=== PATIENT | male | born 1945 | race Caucasian/White ===

== ENCOUNTER → 2017-02-17 | Outpatient (REF) | payer OTHER ==
[2017-02-17 12:36] LABS: BASO % 0.8 % (0.0-1.0); EOS # 0.5 K/mm3 (0.0-0.50); EOS % 7.5 % (0.0-3.0); LARGE UNSTAINED CELL # 0.1 K/mm3 (0.0-0.4); LARGE UNSTAINED CELL % 2.2 % (0.0-4.0); LYMPH # 2.3 K/mm3 (1.5-4.5); LYMPH % 34.4 % (24.0-44.0); MEAN CORPUSCULAR HEMOGLOBIN 31.7 pg (27.0-33.0); MEAN CORPUSCULAR HGB CONC 34.7 g/dl (32.0-36.5); MEAN CORPUSCULAR VOLUME 91.4 fl (80.0-96.0); MONO # 0.5 K/mm3 (0.0-0.8); MONO % 7.4 % (0.0-5.0); NEUTROPHILS % 47.8 % (36.0-66.0); PLATELET COUNT, AUTOMATED 185 k/mm3 (150-450); RED CELL DISTRIBUTION WIDTH 13.1 % (11.5-14.5); WHITE BLOOD COUNT 6.2 K/mm3 (4.0-10.0)
[2017-02-17 13:00] LABS: ALBUMIN 3.7 GM/DL (3.2-5.2); ALBUMIN/GLOBULIN RATIO 1.12 (1.00-1.93); ALKALINE PHOSPHATASE 92 U/L (45-117); ALT/SGPT 23 U/L (12-78); ANION GAP 8 MEQ/L (8-16); AST/SGOT 13 U/L (15-37); BILIRUBIN,TOTAL 0.5 MG/DL (0.2-1.0); BLOOD UREA NITROGEN 11 MG/DL (7-18); CALCIUM LEVEL 9.2 MG/DL (8.8-10.2); CARBON DIOXIDE LEVEL 24 MEQ/L (21-32); CHLORIDE LEVEL 104 MEQ/L (98-107); CHOLESTEROL LEVEL 129 MG/DL (<200); CREATININE FOR GFR 1.01 MG/DL (0.70-1.30); GLOMERULAR FILTRATION RATE > 60.0 (>42); GLUCOSE, FASTING 177 MG/DL (83-110); POTASSIUM SERUM 4.2 MEQ/L (3.5-5.1); SODIUM LEVEL 136 MEQ/L (136-145); TRIGLYCERIDES LEVEL 120 MG/DL (<150)
== END ==
LOC: M SFHCADAM 08:02
PROVIDERS: ATTEND Physician Assistant Medical
DX: E11.9 Type 2 diabetes mellitus without complications (principal); E78.2 Mixed hyperlipidemia; E03.9 Hypothyroidism, unspecified; E55.9 Vitamin D deficiency, unspecified

== ENCOUNTER → 2017-08-17 | Outpatient (REF) | payer OTHER ==
[2017-08-17 13:13] LABS: BASO # 0.1 10^3/uL (0.0-0.2); BASO % 0.6 % (0.0-1.0); EOS # 0.3 10^3/uL (0.0-0.50); EOS % 3.3 % (0.0-3.0); IMMATURE GRANULOCYTE % 0.6 % (0-0); LYMPH # 2.1 10^3/uL (1.5-4.5); LYMPH % 25.1 % (24.0-44.0); MEAN CORPUSCULAR HEMOGLOBIN 30.1 pg (27.0-33.0); MEAN CORPUSCULAR VOLUME 88.6 fl (80.0-96.0); MONO # 0.7 10^3/uL (0.0-0.8); MONO % 8.6 % (0.0-5.0); NEUTROPHILS # 5.2 10^3/uL (1.8-7.7); NEUTROPHILS % 61.8 % (36.0-66.0); PLATELET COUNT, AUTOMATED 278 10^3/uL (150-450); RED CELL DISTRIBUTION WIDTH 12.8 % (11.5-14.5); WHITE BLOOD COUNT 8.4 10^3/uL (4.0-10.0)
[2017-08-17 13:37] LABS: ALBUMIN 3.8 GM/DL (3.2-5.2); ALBUMIN/GLOBULIN RATIO 1.03 (1.00-1.93); ALKALINE PHOSPHATASE 84 U/L (45-117); ALT/SGPT 25 U/L (12-78); ANION GAP 10 MEQ/L (8-16); AST/SGOT 16 U/L (7-37); BILIRUBIN,TOTAL 0.7 MG/DL (0.2-1.0); BLOOD UREA NITROGEN 15 MG/DL (7-18); CALCIUM LEVEL 9.2 MG/DL (8.8-10.2); CARBON DIOXIDE LEVEL 25 MEQ/L (21-32); CHLORIDE LEVEL 104 MEQ/L (98-107); CHOLESTEROL LEVEL 107 MG/DL (<200); CREATININE FOR GFR 1.16 MG/DL (0.70-1.30); GLOMERULAR FILTRATION RATE > 60.0 (>42); GLUCOSE, FASTING 164 MG/DL (83-110); POTASSIUM SERUM 4.6 MEQ/L (3.5-5.1); SODIUM LEVEL 139 MEQ/L (136-145); TOTAL PROTEIN 7.5 GM/DL (6.4-8.2); TRIGLYCERIDES LEVEL 161 MG/DL (<150)
== END ==
LOC: M SFHCADAM 08:52
PROVIDERS: ATTEND Physician Assistant Medical
DX: E03.9 Hypothyroidism, unspecified (principal); E11.9 Type 2 diabetes mellitus without complications; E78.2 Mixed hyperlipidemia; E55.9 Vitamin D deficiency, unspecified

== ENCOUNTER → 2018-04-15 | Outpatient (REF) | payer OTHER ==
[2018-04-15 12:25] LABS: BASO # 0.1 10^3/uL (0.0-0.2); BASO % 0.9 % (0.0-1.0); EOS # 0.4 10^3/uL (0.0-0.50); HEMOGLOBIN 16.2 g/dl (13.5-17.5); IMMATURE GRANULOCYTE % 0.4 % (0-3.0); LYMPH # 2.3 10^3/uL (1.5-4.5); LYMPH % 29.6 % (24.0-44.0); MEAN CORPUSCULAR HGB CONC 34.5 g/dl (32.0-36.5); MONO # 0.7 10^3/uL (0.0-0.8); MONO % 9.2 % (0.0-5.0); NEUTROPHILS # 4.3 10^3/uL (1.8-7.7); NEUTROPHILS % 54.9 % (36.0-66.0); PLATELET COUNT, AUTOMATED 190 10^3/uL (150-450); RED BLOOD COUNT 5.22 10^6/uL (4.30-6.10); WHITE BLOOD COUNT 7.8 10^3/uL (4.0-10.0)
[2018-04-15 12:46] LABS: TOTAL 25(OH) VITAMIN D 41.9 NG/ML (30.0-100.0)
[2018-04-15 13:57] LABS: ESTIMATED AVERAGE GLUCOSE 151 MG/DL (60-110); HEMOGLOBIN A1c 6.9 %
[2018-04-15 14:40] LABS: ALBUMIN 3.5 GM/DL (3.2-5.2); ALKALINE PHOSPHATASE 69 U/L (45-117); ALT/SGPT 31 U/L (12-78); ANION GAP 10 MEQ/L (8-16); AST/SGOT 17 U/L (7-37); BILIRUBIN,TOTAL 0.5 MG/DL (0.2-1.0); BLOOD UREA NITROGEN 15 MG/DL (7-18); CALCIUM LEVEL 8.8 MG/DL (8.8-10.2); CARBON DIOXIDE LEVEL 22 MEQ/L (21-32); CHLORIDE LEVEL 108 MEQ/L (98-107); CHOLESTEROL LEVEL 107 MG/DL (<200); CHOLESTEROL RISK RATIO 2.431 (<5); CREATININE FOR GFR 1.07 MG/DL (0.70-1.30); GLOMERULAR FILTRATION RATE > 60.0 (>42); GLUCOSE, FASTING 155 MG/DL (70-100); HDL CHOLESTEROL 44 MG/DL (>40); LDL CHOLESTEROL 34.2 MG/DL (<100); NON-HDL-C 63 MG/DL; POTASSIUM SERUM 4.4 MEQ/L (3.5-5.1); SODIUM LEVEL 140 MEQ/L (136-145); TRIGLYCERIDES LEVEL 144 MG/DL (<150)
== END ==
LOC: M SFHCADAM 07:50
DX: E11.9 Type 2 diabetes mellitus without complications (principal)
CPT/HCPCS: 84443

== ENCOUNTER 2018-07-16 16:13 | Emergency (ER) | payer OTHER ==
[2018-07-16 18:10] LABS: ALBUMIN 3.6 GM/DL (3.2-5.2); ALKALINE PHOSPHATASE 80 U/L (45-117); ALT/SGPT 33 U/L (12-78); ANION GAP 9 MEQ/L (8-16); AST/SGOT 22 U/L (7-37); BILIRUBIN,TOTAL 0.6 MG/DL (0.2-1.0); BLOOD UREA NITROGEN 13 MG/DL (7-18); CALCIUM LEVEL 9.1 MG/DL (8.8-10.2); CARBON DIOXIDE LEVEL 25 MEQ/L (21-32); CHLORIDE LEVEL 105 MEQ/L (98-107); CPK CREATINE PHOSPHOKINASE 103 U/L (39-308); CREATININE FOR GFR 1.33 MG/DL (0.70-1.30); GLOMERULAR FILTRATION RATE 56.3 (>42); GLUCOSE, FASTING 210 MG/DL (70-100); MAGNESIUM LEVEL 1.9 MG/DL (1.8-2.4); POTASSIUM SERUM 4.1 MEQ/L (3.5-5.1); SODIUM LEVEL 139 MEQ/L (136-145); TOTAL PROTEIN 7.2 GM/DL (6.4-8.2)
== END 2018-07-16 19:51 | disposition home or self-care (01) ==
LOC: M ED 16:13
DX: R25.2 Cramp and spasm (principal); Z86.718 Personal history of other venous thrombosis and embolism; E11.9 Type 2 diabetes mellitus without complications; E78.5 Hyperlipidemia, unspecified; E03.9 Hypothyroidism, unspecified; Z88.0 Allergy status to penicillin; Z79.899 Other long term (current) drug therapy; Z79.84 Long term (current) use of oral hypoglycemic drugs
CPT/HCPCS: 93971

== ENCOUNTER → 2018-10-05 | Outpatient (REF) | payer OTHER, MEDICARE ==
[~2018-10-05] MED LIST: GLYB25TA; JANU100T; LEVO50TA5; METF10004; SIMV20TA2
[2018-10-05 13:19] LABS: ALBUMIN 3.8 GM/DL (3.2-5.2); ALT/SGPT 36 U/L (12-78); BILIRUBIN,TOTAL 0.6 MG/DL (0.2-1.0); BLOOD UREA NITROGEN 12 MG/DL (7-18); CALCIUM LEVEL 8.9 MG/DL (8.8-10.2); CARBON DIOXIDE LEVEL 23 MEQ/L (21-32); CHLORIDE LEVEL 107 MEQ/L (98-107); CHOLESTEROL LEVEL 126 MG/DL (<200); CHOLESTEROL RISK RATIO 2.571 (<5); CREATININE FOR GFR 1.16 MG/DL (0.70-1.30); GLOMERULAR FILTRATION RATE > 60.0 (>42); GLUCOSE, FASTING 154 MG/DL (70-100); HDL CHOLESTEROL 49 MG/DL (>40); LDL CHOLESTEROL 42 MG/DL (<100); NON-HDL-C 77 MG/DL; POTASSIUM SERUM 4.8 MEQ/L (3.5-5.1); SODIUM LEVEL 139 MEQ/L (136-145); TOTAL 25(OH) VITAMIN D 45.5 NG/ML (30.0-100.0); TOTAL PROTEIN 7.4 GM/DL (6.4-8.2); TRIGLYCERIDES LEVEL 175 MG/DL (<150)
[2018-10-05 13:30] LABS: HEMOGLOBIN A1c 8.2 %
== END ==
LOC: M SFHCADAM 08:34
PROVIDERS: ATTEND Physician Assistant Medical
DX: E11.9 Type 2 diabetes mellitus without complications (principal); E55.9 Vitamin D deficiency, unspecified; E03.9 Hypothyroidism, unspecified; E78.2 Mixed hyperlipidemia

== ENCOUNTER → 2019-02-01 | Outpatient (REF) | payer OTHER, MEDICARE ==
[2019-02-01 13:11] LABS: ALBUMIN 3.6 GM/DL (3.2-5.2); ALT/SGPT 35 U/L (12-78); BILIRUBIN,TOTAL 0.6 MG/DL (0.2-1.0); BLOOD UREA NITROGEN 14 MG/DL (7-18); CALCIUM LEVEL 8.7 MG/DL (8.8-10.2); CARBON DIOXIDE LEVEL 24 MEQ/L (21-32); CHLORIDE LEVEL 106 MEQ/L (98-107); CREATININE FOR GFR 1.18 MG/DL (0.70-1.30); GLOMERULAR FILTRATION RATE > 60.0 (>42); GLUCOSE, FASTING 160 MG/DL (70-100); POTASSIUM SERUM 4.6 MEQ/L (3.5-5.1); SODIUM LEVEL 140 MEQ/L (136-145); TOTAL PROTEIN 7.2 GM/DL (6.4-8.2)
[2019-02-01 14:06] LABS: HEMOGLOBIN A1c 7.8 %
== END ==
LOC: M SFHCADAM 08:09
PROVIDERS: ATTEND Physician Assistant Medical
DX: E11.9 Type 2 diabetes mellitus without complications (principal); E03.9 Hypothyroidism, unspecified

== ENCOUNTER 2019-04-04 09:02 | Inpatient (IN) | payer MEDICARE ==
[~2019-04-04] VITALS: Ht 177.8 cm; Wt 90.2 kg
[~2019-04-04 09:02] MED LIST changes: -JANU100T; +JANU100T PO; -LEVO50TA5; +LEVO50TA5 PO; -METF10004; +METF10004 PO; -SIMV20TA2; +SIMV20TA22 PO
[2019-04-04] MEDS ORDERED: LISI10TA4 PO (09:14)
[2019-04-04] MEDS ORDERED: GLYB5TA PO (09:14)
[2019-04-04] MEDS ORDERED: ASPI81TA33 PO (09:14)
[2019-04-04] MEDS ORDERED: FISH1000 PO (09:14)
[2019-04-04 10:15] LABS: BASO # 0.1 10^3/uL (0.0-0.2); BASO % 0.4 % (0.0-1.0); EOS # 0.1 10^3/uL (0.0-0.50); EOS % 0.9 % (0.0-3.0); HEMATOCRIT 48.6 % (42.0-52.0); HEMOGLOBIN 16.7 g/dl (13.5-17.5); LYMPH # 1.3 10^3/uL (1.5-4.5); MEAN CORPUSCULAR HEMOGLOBIN 31.2 pg (27.0-33.0); MEAN CORPUSCULAR HGB CONC 34.4 g/dl (32.0-36.5); MEAN CORPUSCULAR VOLUME 90.8 fl (80.0-96.0); MONO # 1.3 10^3/uL (0.0-0.8); MONO % 9.1 % (0.0-5.0); NEUTROPHILS # 11.4 10^3/uL (1.8-7.7); NEUTROPHILS % 79.6 % (36.0-66.0); PLATELET COUNT, AUTOMATED 205 10^3/uL (150-450); RED BLOOD COUNT 5.35 10^6/uL (4.30-6.10); WHITE BLOOD COUNT 14.4 10^3/uL (4.0-10.0)
--- NOTE | 2019-04-04 10:35 | REP ---
Clinical: Cough and dyspnea. Technique: PA and lateral. Comparison: None. Findings: Ill-defined bibasilar atelectasis/infiltrate (left greater than right). No obvious effusion. No pneumothorax. Mediastinum and cardiac silhouette grossly unremarkable. Skeletal structures intact. Impression: Ill-defined bibasilar atelectasis/infiltrate (left greater than right). Follow-up to resolution recommended. Electronically Signed by Sebastian Tolliver MD 04/04/2019 10:27 A
[2019-04-04 10:43] LABS: BLOOD UREA NITROGEN 15 MG/DL (7-18); CALCIUM LEVEL 9.4 MG/DL (8.8-10.2); CARBON DIOXIDE LEVEL 22 MEQ/L (21-32); CHLORIDE LEVEL 100 MEQ/L (98-107); CK-MB VALUE MASS < 1.0 NG/ML (<3.6); CPK CREATINE PHOSPHOKINASE 59 U/L (39-308); CREATININE FOR GFR 1.37 MG/DL (0.70-1.30); GLOMERULAR FILTRATION RATE 54.2 (>42); GLUCOSE, FASTING 219 MG/DL (70-100); MB/CK RELATIVE INDEX 1.69 (< OR =4); POTASSIUM SERUM 4.7 MEQ/L (3.5-5.1); SODIUM LEVEL 131 MEQ/L (136-145); TROPONIN I < 0.02 NG/ML (< 0.10)
[2019-04-04] MEDS ORDERED: ISOVUE-370 76% 100ML VIAL (Q9967) As Ordered ONE (10:54)
[2019-04-04 11:07] LABS: NT-PRO BNP 95 PG/ML (<125)
[2019-04-04] MEDS ORDERED: NS 1,000 ML IV ONE (11:45)
--- NOTE | 2019-04-04 11:59 | REP ---
Clinical: Pleuritic chest pain. Technique: Axial contrast enhanced images from the thoracic inlet to the upper abdomen using pulmonary embolus technique including multiplanar and MIP re-formations. 100 ml Isovue 370 intravenous contrast material administered without complication. Findings: Significant pulmonary emboli are identified within the first and second order pulmonary arteries involving the lingula, left lower lobe, right lower lobe, and right middle lobe. Small ill-defined areas of consolidation involving the lingula and left lower lobe are identified along with mild bibasilar atelectasis and dependent changes. No effusion. No pneumothorax. Underlying chronic age-related interstitial changes noted. Thoracic aorta and heart/pericardium are relatively normal. No cardiomegaly or pericardial effusion. No aortic aneurysm or dissection. Osseous structures demonstrate age-related degenerative changes. Impression: Significant bilateral pulmonary emboli extending into the first and second order lingular, left lower lobe, right middle lobe and right lower lobe pulmonary arteries with mild lingular and left lower lobe consolidations as well as minimal dependent changes and atelectasis. Electronically Signed by Sebastian Tolliver MD 04/04/2019 11:50 A
[2019-04-04] MEDS ORDERED: ENOXAPARIN 100MG/1ML SYRINGE (J1650) SC ONE (12:30)
[2019-04-04] MEDS ORDERED: D32000CA PO (12:45)
[2019-04-04 13:02] LABS: INR 1.11
[2019-04-04 13:03] LABS: PARTIAL THROMBOPLASTIN TIME 33.2 SECONDS (25.0-38.4)
--- NOTE | 2019-04-04 13:58 | REP ---
Bilateral lower extremity deep vein duplex ultrasound: Comparison is the left lower extremity deep vein duplex ultrasound dated 07/16/2018. Right lower extremity: The right popliteal vein is incompletely compressible and no echogenic thrombus can be identified in the right popliteal vein lumen. There is no thrombus throughout the remainder of the right lower extremity. Impression: Focal nonocclusive thrombus in the right popliteal vein. Left lower extremity: There is occlusive thrombus extending from the posterior tibial trunk into the popliteal vein and femoral vein, all the way to the common femoral vein. Impression: Extensive occlusive thrombus from the posterior tibial vein to the common femoral vein. Electronically Signed by Bradley Jones MD 04/04/2019 01:49 P
[2019-04-04 14:12] LABS: ERYTHROCYTE SEDIMENTATION RATE 17 mm/hr (0-20)
[2019-04-04] MEDS ORDERED: GLUCAGON FOR INJ 1 MG VIAL (J1610) SC PRN (14:45)
[2019-04-04] MEDS ORDERED: GLUCOSE 4 GM CHEW TABLET PO PRN (14:45)
[2019-04-04] MEDS ORDERED: DEXTROSE 50% 50 ML SYRINGE IV PRN (14:45)
--- NOTE | 2019-04-04 15:21 | CR.PDOC ---
General Date of Consultation: Apr 04, [address] Marte HPI: 73 year old M with a past medical history significant for history of right lower extremity DVT postoperative 2001 at time of colovesicular repair. 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 The patient states that on Thursday he was walking to his car when he suddenly felt short of breath. He also felt fatigued. He noted radiating pain through to his back which was worse with a deep breath. Over the weekend he felt worse and felt more fatigued with decreased oral intake. States he was in bed for most of the weekend. The patient denies chest pain, lower extremity pain or lower extremity swelling. Denies any fevers, chills, Headache, palpitations, abdominal pain, N/V/D or changes in bowel or bladder habits. The patient denies any prior history of bleeding, epistaxis, hematuria, GI bleeding, hemorrhagic stroke. Denies history of surgery or trauma. Vascular surgery is consulted for consideration of left lower extremity thrombectomy. 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 ROS: As noted in HPI, otherwise 11pt ROS of systems reviewed and unremarkable. PE: GEN: 73 yo M, appears stated age. Alert and oriented x 3. Currently appears comfortable resting in the stretcher. HEENT: Normocephalic, atraumatic.Sclera are nonicteric. Conjunctiva without injection. No facial asymmetry. Moist mucous membranes. CHEST: Regular rate and rhythm, +S1, +S2 LUNGS: Clear to auscultation bilaterally. No wheezes, rales, or rhonchi. Breathing appears symmetric and easy. ABD: Round, soft, non-tender, non-distended. +Bowel sounds throughout. No rebound or guarding. No costovertebral angle tenderness. EXT: Pulses palpable DP/PT bilaterally. No lower extremity edema appreciated. No erythema or calf tenderness noted. SKIN: [place], dry, warm. Capillary refill <2sec. No rashes. NEURO: Alert and oriented x 3. Cranial nerves III-XII are intact. No focal deficits appreciated. CTA chest Significant bilateral pulmonary emboli extending into the first and second order lingular, left lower lobe, right middle lobe and right lower lobe pulmonary arteries with mild lingular and left lower lobe consolidations as well as minimal dependent changes and atelectasis. Electronically Signed by Sebastian Tolliver MD 04/04/2019 11:50 A Lower extremity ultrasound Focal nonocclusive thrombus in the right popliteal vein. Left lower extremity: There is occlusive thrombus extending from the posterior tibial trunk into the popliteal vein and femoral vein, all the way to the common femoral vein. Impression: Extensive occlusive thrombus from the posterior tibial vein to the common femoral vein. Electronically Signed by Bradley Jones MD 04/04/2019 01:49 P A&P: 1. Bilateral DVT/PE. 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 Vital signs noted currently heart rate 112, blood pressure 153/72, respiratory rate 16, oxygen saturation 96% 2 L nasal cannula. Serum creatinine noted to be 1.37. Fibrinogen 681 Echocardiogram pending at this time. Hypercoagulable workup pending The patient is reviewed with Dr. Marte. Await echocardiogram results. Dr. Marte will discuss with patient regarding risks/benefits of thrombolysis. The patient denies any prior history of bleeding, epistaxis, hematuria, GI bleeding, hemorrhagic stroke. Denies history of surgery or trauma. Currently Lovenox 90 mg subcutaneous every 12 hours. Vital Signs/I&O Vital Signs Date Time Temp Pulse Resp B/P (MAP) Pulse Ox O2 Delivery O2 Flow Rate FiO2 04/04/19 13:47 112 16 96 Nasal Cannula 2.0 04/04/19 13:37 153/72 (99) 04/04/19 09:03 99.6 Laboratory Data Labs 24H Laboratory Tests 2 04/04/19 10:03: Immature Granulocyte % (Auto) 1.0, White Blood Count 14.4H, Red Blood Count 5.35, Hemoglobin 16.7, Hematocrit 48.6, Mean Corpuscular Volume 90.8, Mean Corpuscular Hemoglobin 31.2, Mean Corpuscular Hemoglobin Concent 34.4, Red Cell Distribution Width 12.9, Platelet Count 205, Neutrophils (%) (Auto) 79.6H, Lymphocytes (%) (Auto) 9.0L, Monocytes (%) (Auto) 9.1H, Eosinophils (%) (Auto) 0.9, Basophils (%) (Auto) 0.4, Neutrophils # (Auto) 11.4H, Lymphocytes # (Auto) 1.3L, Monocytes # (Auto) 1.3H, Eosinophils # (Auto) 0.1, Basophils # (Auto) 0.1, Nucleated Red Blood Cells % (auto) 0.0, Erythrocyte Sedimentation Rate 17, Anion Gap 9, Glomerular Filtration Rate 54.2, Blood Urea Nitrogen 15, Creatinine 1.37H, Sodium Level 131L, Potassium Level 4.7, Chloride Level 100, Carbon Dioxide Level 22, Calcium Level 9.4, Total Creatine Kinase 59, Creatine Kinase MB < 1.0, Creatine Kinase MB Relative Index 1.69, Troponin I < 0.02, C-Reactive Protein, Quantitative 11.00H, ZL-Eph-F-Type Natriuretic Peptide 95 04/04/19 11:52: Lactic Acid Level 2.4*H 04/04/19 12:27: Prothrombin Time 14.0, Prothromb Time International Ratio 1.11, Activated P artial Thromboplast Time 33.2 04/04/19 12:42: Fibrinogen 681H CBC/BMP Laboratory Tests 04/04/19 10:03 Red Blood Count 5.35, Mean Corpuscular Volume 90.8, Mean Corpuscular Hemoglobin 31.2, Mean Corpuscular Hemoglobin Concent 34.4, Red Cell Distribution Width 12.9, Neutrophils (%) (Auto) 79.6 H, Lymphocytes (%) (Auto) 9.0 L, Monocytes (%) (Auto) 9.1 H, Eosinophils (%) (Auto) 0.9, Basophils (%) (Auto) 0.4, Neutrophils # (Auto) 11.4 H, Lymphocytes # (Auto) 1.3 L, Monocytes # (Auto) 1.3 H, Eosinophils # (Auto) 0.1, Basophils # (Auto) 0.1, Calcium Level 9.4, Total Creatine Kinase 59 Microbiology Microbiology 04/04/19 Blood Culture, Received Pending 04/04/19 Blood Culture, Received Pending 04/04/19 Respiratory Virus Panel (PCR) (CARRILLO), Received Pending Allergies Coded Allergies: Penicillins (Verified Allergy, Intermediate, rash, SOB, 7/29/19) Home Medications Scheduled Aspirin (Aspirin EC) 81 Mg Tablet.dr, 81 MG PO Q2D, (Reported) Cholecalciferol (Vitamin D3) (Vitamin D3) 2,000 Unit Capsule, 2,000 UNIT PO DAILY, (Reported) Glyburide (Glyburide) 5 Mg Tablet, 5 MG PO DAILY, (Reported) Levothyroxine Sodium (Levothyroxine Sodium) 50 Mcg Tab, 50 MCG PO DAILY, (Reported) Lisinopril (Lisinopril) 10 Mg Tablet, 10 MG PO QPM, (Reported) Metformin HCl (Metformin HCl) 1,000 Mg Tab, 1,000 MG PO BID, (Reported) [place]-3 Fatty Acids/Fish Oil (Fish Oil 1,000 mg Capsule) 1 Each Capsule, 360 MG PO BID, (Reported) Simvastatin (Simvastatin) 20 Mg Tab, 20 MG PO QPM, (Reported) Sitagliptin Phosphate (Januvia) 100 Mg Tab, 100 MG PO QPM, (Reported) Viola Bernabe Apr 04, 2019 15:21
[2019-04-04 16:28] LABS: CK-MB VALUE MASS < 1.0 NG/ML (<3.6); CPK CREATINE PHOSPHOKINASE 48 U/L (39-308); MB/CK RELATIVE INDEX 2.08 (< OR =4); TROPONIN I < 0.02 NG/ML (< 0.10)
[2019-04-04 16:52] VITALS: BP 150/60
[2019-04-04] MEDS: HumaLOG INSULIN (NovoLOG) PER UNIT SC SCH ×2 (17:30→20:48)
[2019-04-04 19:00] VITALS: BP 157/79
--- NOTE | 2019-04-04 20:15 | ECGEPIP ---
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
--- NOTE | 2019-04-04 20:39 | ECHO ---
DATE OF PROCEDURE: 04/04/2019 DATE OF : 1945 AGE: 73 GENDER: Male HEIGHT: 70 inches WEIGHT: 196 pounds BODY SURFACE AREA: 2.07 meters squared INPATIENT: Currently in the emergency room. REFERRING PHYSICIAN: Dr. Daphnie Gonzalez INDICATION: Dyspnea. Pulmonary emboli. MEASUREMENTS: 2D Measurements: RV: 3.4 cm LV: 4.0 cm Septum: 1.1 cm Posterior wall: 1.1 cm Aortic root: 3.6 cm LA: 3.4 cm LVEF: 80% DOPPLER MEASUREMENTS: AV: 1.2 meters per second LVOT: 1.1 meters per second LVOT: 2.2 cm MV-E: 72, A: 120, EA ratio: 0.6 Early mitral deceleration time: 229 milliseconds E prime: 5.9, A prime: 10, E/E prime ratio: 12.3 Pulmonary capillary wedge pressure: 14.7 mmHg PV: 0.75 meters per second Pulmonary artery acceleration time: 81 milliseconds RVSP: 46-51 mmHg IVC: 2.0 cm COMMENTS: Sinus tachycardia without intraventricular conduction disturbance. M-mode and two-dimensional echocardiography was performed with pulsed, continuous wave, color flow and tissue Doppler studies. Normal left ventricular size and wall thickness with hyperkinetic wall motion. Normal left atrial size but Doppler assessment of left ventricular (LV) diastolic function was abnormal with at least borderline increased estimated mean left atrial pressure. Normal right heart chamber sizes and motion with Doppler evidence of at least moderate pulmonary hypertension. Inferior vena cava (IVC) size upper limits of normal with reduced respiratory collapse in keeping with elevated central venous pressure. Normal appearing and functioning valvular structures. Normal aortic root size. No apparent intracardiac mass or pericardial effusion.
[2019-04-04 20:45] VITALS: BP 118/76
[2019-04-04] MEDS: SIMVASTATIN 20 MG TAB PO SCH (20:56)
[2019-04-04] MEDS ORDERED: lisinopriL 10 MG TAB PO SCH (21:00)
[2019-04-04] MEDS ORDERED: SITagliptin 50 MG TAB (JANUVIA) PO SCH (21:00)
[2019-04-05] VITALS (12 sets, daily range): BP systolic 104–190; BP diastolic 56–111
[2019-04-05] MEDS ORDERED: ENOXAPARIN 100MG/1ML SYRINGE (J1650) SC ONE
[2019-04-05 03:15] LABS: CK-MB VALUE MASS < 1.0 NG/ML (<3.6); CPK CREATINE PHOSPHOKINASE 66 U/L (39-308); MB/CK RELATIVE INDEX 1.52 (< OR =4); TROPONIN I < 0.02 NG/ML (< 0.10)
[2019-04-05] MEDS: LEVOTHYROXINE 50MCG TABLET (0.05MG) PO SCH (05:59)
[2019-04-05] MEDS: HumaLOG INSULIN (NovoLOG) PER UNIT SC SCH ×4 (07:54→21:00)
[2019-04-05] MEDS: VITAMIN D 1,000 INTERNATIONAL UNITS TABLET PO SCH (07:55)
--- NOTE | 2019-04-05 08:03 | HPE ---
DATE OF ADMISSION: 04/04/2019 PRIMARY CARE PHYSICIAN: Yuli Mccann PA-C. CHIEF COMPLAINT: Chest pain, shortness of breath, weakness. HISTORY OF PRESENT ILLNESS: A 73-year-old male with a past medical history significant for postoperative deep venous thrombosis (DVT) in 2001 after colovesicular fistula repair status post Lovenox at that time, diabetes, hypertension, hypothyroidism, vitamin D deficiency, basal cell cancer (CA) of the right shoulder, left nose, right upper back, and left neck, and dyslipidemia, presents to the emergency room with several day history of increasing pleuritic chest pain. 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 This past week, he has been driving every day for about five days, at least about 50 hours. 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 On Thursday, he drove to [place], then [place] and then [place], and then back to [place]. He usually drives alone long distances, but about 4-5 other personnel comes in order to bring him back home. On Thursday evening, patient noted left-sided flank pain, worsened when he takes a deep breath and complained of pleuritic chest pain and a nonproductive cough. He otherwise denies any fever or chills. He has had increasing fatigue and weakness, prompting him to sleep all day on a chair for the past three days and in bed. According to the , he has not really eaten very much since Thursday evening and throughout the weekend. He has only had a homemade chicken soup on Thursday and a can of ninoska darrel. Despite this, patient kept on taking his medications, including lisinopril 10 mg daily. He has complained of decreased urination and some constipation. He has tried to keep cool in this 90 degree weather by keeping the fan on inside the home. He has not had any fevers or chills and has been around 99 degrees on the thermometer. In the emergency room (ER), he was found to be tachycardic. Chest x-ray showed bilateral infiltrates. White count was 14,000. Due to recent history of long distance driving, patient was sent for CT of the chest, which showed extensive bilateral pulmonary embolism. Venous Dopplers of the lower extremities shows an occlusive thrombus extending from the posterior tibial trunk into the popliteal vein and femoral vein, all the way to the common femoral. Hospitalist was called to admit. PAST MEDICAL HISTORY: 1. Hypertension. 2. Dyslipidemia. 3. Diabetes. 4. Hypothyroidism. 5. Vitamin D deficiency. 6. Postoperative deep venous thrombosis (DVT) in 2001. 7. Basal cell cancer (CA) upper back and neck. ALLERGIES: PENICILLIN, causing a rash. PAST SURGICAL HISTORY: 1. Colovesicular surgical repair by Dr. Farias in 2002. 2. Release of tendon on the ring finger of the left hand 2010. HOME MEDICATIONS: Please see below. 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 He is a former smoker, quit over 10 years ago. Lives with his at home. Recreational alcohol use. FAMILY HISTORY: Father , 80s, diabetes and smoker. Mother , 89, diabetes, diverticulosis. Three brothers, two sisters, all with type 2 diabetes. Son is alive, age 55, with obesity. Daughter alive, age 35, with obesity. REVIEW OF SYSTEMS: A 12-point system negative aside from positive findings in history of present illness (HPI). PHYSICAL EXAMINATION: Temperature 99.6, pulse 133, respiratory rate 19, blood pressure 139/64, 94% on room air. GENERAL: Patient is awake, alert, oriented times three, answering questions appropriately. Face is symmetric. Tongue is midline. No use of respiratory accessory muscles. No conversational dyspnea. Extraocular muscles are intact. Neck is supple, full range of motion. No cervical lymphadenopathy, thyromegaly or jugular venous distention. There are no carotid bruits noted. Lungs are diminished, but clear to auscultation. HEART: S1, S2. Sinus tachycardia. No murmurs, rubs or gallops. ABDOMEN: Obese, soft, nontender, nondistended. Positive bowel sounds. EXTREMITIES: No cyanosis, clubbing. There is trace pitting edema bilateral lower extremities. No calf tenderness or swelling. LABORATORY DATA: White count 14.4, hemoglobin 16, hematocrit 48, platelet count 205; 79% neutrophils, 9% lymphocytes. Sodium 131, potassium 4.7, chloride 100, bicarbonate 22, BUN 15, creatinine 1.37, glucose 219, lactic acid 2.4, calcium 9.4. Total CK 59, MB fraction less than 1. Troponin less than 0.02. CRP of 11. BNP of 95. Two sets of blood cultures are negative. Urinalysis pending. Antinuclear antibody (JOSEFA) screen, anticardiolipin, Factor II mutation, Factor V Leiden mutation all pending. IMAGING STUDIES: 04/04/2019: Chest x-ray: Ill-defined bibasilar atelectasis/infiltrate, left greater than the right. Followup to resolution is recommended. CT chest shows significant bilateral pulmonary emboli extending into the first and second order of lingula, left lower lobe, right middle lobe, right lower lobe pulmonary arteries, with mild lingular and left lower lobe consolidation as well as minimal dependent changes and atelectasis. Venous Doppler bilateral lower extremities shows a focal nonocclusive thrombus in the right popliteal vein. Left lower extremity has occlusive thrombus extending to the posterior tibial trunk into the popliteal and femoral vein all the way to the common femoral vein, extensive occlusive thrombus from the posterior tibial vein to the common femoral vein ASSESSMENT AND PLAN: This is a 73-year-old male who presented with pleuritic chest pain, shortness of breath, found to have extensive bilateral pulmonary embolism and extensive left lower extremity deep venous thrombosis (DVT) extending from the posterior tibial trunk to the popliteal and femoral veins to the common femoral vein. IMPRESSION: 1. Pulmonary embolism (PE)/deep venous thrombosis (DVT) secondary to recent long distance driving and immobility. He is currently on Lovenox subcutaneously every 12 hours with weight of 89.9 kilos, adjusted to 90 mg subcutaneously every 12 hours. Factor V Leiden mutation, Factor II mutation, JOSEFA, anticardiolipin antibodies have been sent. Protein C and S has been deferred as this may be depleted during the acute clot formation. Echocardiogram has been ordered to determine patient's pulmonary arterial pressures. Will consult vascular surgery regarding extensive left lower extremity DVT, if thrombectomy is indicated. 2. Acute kidney injury secondary to decreased oral intake and continued use of lisinopril. Patient will be monitored with a repeat metabolic panel, encouraged to continue with oral intake and IV fluids have been given. Monitor respiratory status in light of bilateral PE. Avoid nephrotoxins. Renal dose all medications. Keep strict intake and output (I and O). 3. Hypothyroidism. May continue on home dose of levothyroxine 50 mcg daily and check a TSH level. 4. Type 2 diabetes. Continue on consistent carbohydrate diet. Insulin sliding scale. Will hold off on patient's metformin at this time in light of recent contrast use for CT angiogram of the chest. 5. Dyslipidemia. Continue on omega3 fish oil and simvastatin. Check lipid panel in the morning. 6. Vitamin D deficiency. Continue on vitamin D supplements. 7. CODE STATUS: FULL CODE. Patient will be signed out to Dr. Ko Garner.
[2019-04-05 08:44] LABS: HEMATOCRIT 43.2 % (42.0-52.0); HEMOGLOBIN 15.1 g/dl (13.5-17.5); MEAN CORPUSCULAR VOLUME 88.7 fl (80.0-96.0); PLATELET COUNT, AUTOMATED 228 10^3/uL (150-450); RED BLOOD COUNT 4.87 10^6/uL (4.30-6.10); WHITE BLOOD COUNT 11.1 10^3/uL (4.0-10.0)
--- NOTE | 2019-04-05 09:10 | IPNPDOC ---
Date Seen The patient was seen on 04/05/19. Progress Note Vascular surgery. Dr. Marte HPI: 73 year old M with a past medical history significant for history of right lower extremity DVT postoperative 2001 at time of colovesicular repair. 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 The patient states that on Thursday he was walking to his car when he suddenly felt short of breath. He also felt fatigued. He noted radiating pain through to his back which was worse with a deep breath. Over the weekend he felt worse and felt more fatigued with decreased oral intake. States he was in bed for most of the weekend. This AM the pt states breathing is comfortable. Eating and drinking. The patient denies chest pain, lower extremity pain or lower extremity swelling. Denies any fevers, chills, Headache, palpitations, abdominal pain, N/V/D or changes in bowel or bladder habits. The patient denies any prior history of bleeding, epistaxis, hematuria, GI bleeding, hemorrhagic stroke. Denies history of surgery or trauma. Vascular surgery is consulted for consideration of left lower extremity thrombectomy. PMHx: Hypertension Hypothyroidism Dyslipidemia History of post operative DVT right lower extremity 2001 Vitamin D deficiency PSHX: Removal of squamous cell carcinoma Colovesicular repair Dupuytren's contracture left hand PE: GEN: 73 yo M, appears stated age. Alert and oriented x 3. Currently appears comfortable. HEENT: Normocephalic, atraumatic. Moist mucous membranes. CHEST: Regular rate and rhythm, +S1, +S2 LUNGS: Clear to auscultation bilaterally. No wheezes, rales, or rhonchi. Breathing appears symmetric and easy. ABD: Round, soft, non-tender, non-distended. +Bowel sounds throughout. No rebound or guarding. EXT: Pulses palpable DP/PT bilaterally. No lower extremity edema appreciated. No erythema or calf tenderness noted. SKIN: Sells, dry, warm. Capillary refill <2sec. No rashes. NEURO: Alert and oriented x 3. Cranial nerves III-XII are intact. No focal deficits appreciated. CTA chest Significant bilateral pulmonary emboli extending into the first and second order lingular, left lower lobe, right middle lobe and right lower lobe pulmonary arteries with mild lingular and left lower lobe consolidations as well as minimal dependent changes and atelectasis. Electronically Signed by Sebastian Tolliver MD 04/04/2019 11:50 A Lower extremity ultrasound Focal nonocclusive thrombus in the right popliteal vein. Left lower extremity: There is occlusive thrombus extending from the posterior tibial trunk into the popliteal vein and femoral vein, all the way to the common femoral vein. Impression: Extensive occlusive thrombus from the posterior tibial vein to the common femoral vein. Electronically Signed by Bradley Jones MD 04/04/2019 01:49 P TTE COMMENTS: Sinus tachycardia without intraventricular conduction disturbance. M-mode and two-dimensional echocardiography was performed with pulsed, continuous wave, color flow and tissue Doppler studies. Normal left ventricular size and wall thickness with hyperkinetic wall motion. Normal left atrial size but Doppler assessment of left ventricular (LV) diastolic function was abnormal with at least borderline increased estimated mean left atrial pressure. Normal right heart chamber sizes and motion with Doppler evidence of at least moderate pulmonary hypertension. Inferior vena cava (IVC) size upper limits of normal with reduced respiratory collapse in keeping with elevated central venous pressure. Normal appearing and functioning valvular structures. Normal aortic root size. No apparent intracardiac mass or pericardial effusion. DD: Ke Ferraro MD, [facility] 04/04/191938 A&P: 1. Bilateral DVT/PE. 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 Vital signs noted currently heart rate 92-107, SBP 125, respiratory rate 16, oxygen saturation 94% RA. Serum creatinine this AM pending. Fibrinogen 681 on admission. Echocardiogram as above. Hypercoagulable workup pending The patient is reviewed with Dr. Marte. Dr. Marte to further review TTE and plans to discuss recommendations with patient. The patient denies any prior history of bleeding, epistaxis, hematuria, GI bleeding, hemorrhagic stroke. Denies history of surgery or trauma. Currently Lovenox 90 mg subcutaneous every 12 hours. VS, I&O, 24H, Fishbone Vital Signs/I&O Vital Signs Date Time Temp Pulse Resp B/P (MAP) Pulse Ox O2 Delivery O2 Flow Rate FiO2 04/05/19 08:00 97.4 107 18 122/75 (91) 94 04/05/19 00:26 2.0 04/04/19 16:31 Room Air I&O- Last 24 Hours up to 6 AM 04/05/19 06:00 Intake Total 1300 ml Output Total 300 ml Balance 1000 ml Laboratory Data 24H LABS Laboratory Tests 2 04/04/19 10:03: Immature Granulocyte % (Auto) 1.0, White Blood Count 14.4H, Red Blood Count 5.35, Hemoglobin 16.7, Hematocrit 48.6, Mean Corpuscular Volume 90.8, Mean Giselle uscular Hemoglobin 31.2, Mean Corpuscular Hemoglobin Concent 34.4, Red Cell Distribution Width 12.9, Platelet Count 205, Neutrophils (%) (Auto) 79.6H, Lymphocytes (%) (Auto) 9.0L, Monocytes (%) (Auto) 9.1H, Eosinophils (%) (Auto) 0.9, Basophils (%) (Auto) 0.4, Neutrophils # (Auto) 11.4H, Lymphocytes # (Auto) 1.3L, Monocytes # (Auto) 1.3H, Eosinophils # (Auto) 0.1, Basophils # (Auto) 0.1, Nucleated Red Blood Cells % (auto) 0.0, Erythrocyte Sedimentation Rate 17, Anion Gap 9, Glomerular Filtration Rate 54.2, Blood Urea Nitrogen 15, Creatinine 1.37H, Sodium Level 131L, Potassium Level 4.7, Chloride Level 100, Carbon Dioxide Level 22, Calcium Level 9.4, Total Creatine Kinase 59, Creatine Kinase MB < 1.0, Creatine Kinase MB Relative Index 1.69, Troponin I < 0.02, C-Reactive Protein, Quantitative 11.00H, RU-Nev-[id number]-Type Natriuretic Peptide 95 04/04/19 11:52: Lactic Acid Level 2.4*H 04/04/19 12:27: Prothrombin Time 14.0, Prothromb Time International Ratio 1.11, Activated Partial Thromboplast Time 33.2 04/04/19 12:42: Fibrinogen 681H 04/04/19 15:24: Lactic Acid Level 1.5, Total Creatine Kinase 48, Creatine Kinase MB < 1.0, Creatine Kinase MB Relative Index 2.08, Troponin I < 0.02 04/04/19 16:20: Lactic Acid Followup at 4 Hours 2.6*H 04/04/19 17:18: Bedside Glucose (Misc Panel) 134H 04/04/19 20:00: Bedside Glucose (Misc Panel) 123H 04/05/19 02:29: Total Creatine Kinase 66, Creatine Kinase MB < 1.0, Creatine Kinase MB Relative Index 1.52, Troponin I < 0.02 04/05/19 04:18: Urine Color YELLOW, Urine Appearance CLEAR, Urine pH 5.0, Urine Specific [place] 1.014, Urine Protein NEGATIVE, Urine Glucose (UA) NEGATIVE, Urine Ketones TRACEH, Urine Blood NEGATIVE, Urine Nitrite NEGATIVE, Urine Bilirubin NEGATIVE, Urine Urobilinogen 0.2, Urine Leukocyte Esterase NEGATIVE, Urine WBC (Auto) 0, Urine RBC (Auto) 0, Urine Hyaline Casts (Auto) 0, Urine Bacteria (Auto) NEGATIVE, Urine Squamous Epithelial Cells 0, Urine Sperm (Auto) 04/05/19 06:37: Bedside Glucose (Misc Panel) 118H 04/05/19 08:32: Nucleated Red Blood Cells % (auto) 0.0 CBC/BMP Laboratory Tests 04/04/19 10:03 Red Blood Count 5.35, Mean Corpuscular Volume 90.8, Mean Corpuscular Hemoglobin 31.2, Mean Corpuscular Hemoglobin Concent 34.4, Red Cell Distribution Width 12.9, Neutrophils (%) (Auto) 79.6 H, Lymphocytes (%) (Auto) 9.0 L, Monocytes (%) (Auto) 9.1 H, Eosinophils (%) (Auto) 0.9, Basophils (%) (Auto) 0.4, Neutrophils # (Auto) 11.4 H, Lymphocytes # (Auto) 1.3 L, Monocytes # (Auto) 1.3 H, Eosinophils # (Auto) 0.1, Basophils # (Auto) 0.1, Calcium Level 9.4, Total Creatine Kinase 59 04/05/19 08:32 Red Blood Count 4.87, Mean Corpuscular Volume 88.7, Mean Corpuscular Hemoglobin 31.0, Mean Corpuscular Hemoglobin Concent 35.0, Red Cell Distribution Width 13.0 Microbiology Microbiology 04/04/19 Blood Culture, Received Pending 04/04/19 Blood Culture, Received Pending 04/04/19 Respiratory Virus Panel (PCR) ([facility]) - Final, Complete Viola Bernabe Apr 05, 2019 09:10
[2019-04-05 09:12] LABS: ALT/SGPT 20 U/L (12-78); BLOOD UREA NITROGEN 15 MG/DL (7-18); CARBON DIOXIDE LEVEL 22 MEQ/L (21-32); CHLORIDE LEVEL 102 MEQ/L (98-107); GLOMERULAR FILTRATION RATE > 60.0 (>42); GLUCOSE, FASTING 189 MG/DL (70-100); POTASSIUM SERUM 4.4 MEQ/L (3.5-5.1); SODIUM LEVEL 133 MEQ/L (136-145); TOTAL PROTEIN 7.7 GM/DL (6.4-8.2)
--- NOTE | 2019-04-05 09:47 | IPNPDOC ---
Subjective Date Seen The patient was seen on 04/05/19. Subjective Chief Complaint/HPI Patient sitting on edge of bed as I entered the room. Family members are at bedside. Patient reports to be feeling well. No c/o expressed Constitutional: Denies: Chills, Fever Pulmonary: Denies: Dyspnea, Cough, Pleuritic Chest Pain Cardiovascular: Denies: Chest Pain, Palpitations, Orthopnea, Edema Gastrointestinal: Denies: Nausea, Vomiting, Abdominal Pain Objective Physical Examination General Exam: Positive: Alert, Cooperative, No Acute Distress Neck Exam: Positive: Supple; Negative: JVD Chest Exam: Positive: Clear to auscultation, Normal air movement; Negative: Rales, Rhonchi, Wheezing Heart Exam: Positive: Rate Normal (with peroids of tachycardia ) Extremity Exam: Positive: Normal pulses; Negative: Edema, Tenderness Psych Exam: Positive: Mental status NL, Mood NL Assessment /Plan Problems (1) DVT (deep venous thrombosis) Status: Acute Response to Treatment: Stable Problem Specific Plan: Consult Specialist Problem Text: 04/05/19: Dr. Marte consulted and we await further tx recommendations, ? thrombectomy. Currently Lovenox 90 mg subcutaneous every 12 hours. (2) Bilateral pulmonary embolism Status: Acute Response to Treatment: Stable Problem Specific Plan: Consult Specialist Problem Text: 04/05/19: On Levonox as discussed above ECHO RESULTS: Sinus tachycardia without intraventricular conduction disturbance. M-mode and two-dimensional echocardiography was performed with pulsed, continuous wave, color flow and tissue Doppler studies. Normal left ventricular size and wall thickness with hyperkinetic wall motion. Normal left atrial size but Doppler assessment of left ventricular (LV) diastolic function was abnormal with at least borderline increased estimated mean left atrial pressure. Normal right heart chamber sizes and motion with Doppler evidence of at least moderate pulmonary hypertension. Inferior vena cava (IVC) size upper limits of normal with reduced respiratory collapse in keeping with elevated central venous pressure. Normal appearing and functioning valvular structures. Normal aortic root size. (3) Hypertension Status: Chronic Response to Treatment: Stable Problem Text: 04/05/19: Pressures stable. Lisinopril 10mg on hold d/t SANYA. We will continue to monitor (4) Diabetes mellitus Status: Chronic Response to Treatment: Stable Problem Text: 04/05/19: Last A1C 7.8. Patient on Sliding scale coverage (5) SANYA (acute kidney injury) Status: Resolved Problem Text: 04/05/19: Renal function has returned to baseline Plan/VTE VTE Prophylaxis Ordered?: Yes (Lovenox) VS, I&O, 24H, Fishbone Vital Signs/I&O Vital Signs Date Time Temp Pulse Resp B/P (MAP) Pulse Ox O2 Delivery O2 Flow Rate FiO2 04/05/19 08:00 97.4 107 18 122/75 (91) 94 04/05/19 00:26 2.0 04/04/19 16:31 Room Air I&O- Last 24 Hours up to 6 AM 04/05/19 06:00 Intake Total 1300 ml Output Total 300 ml Balance 1000 ml Laboratory Data 24H LABS Laboratory Tests 2 04/04/19 10:03: Immature Granulocyte % (Auto) 1.0, White Blood Count 14.4H, Red Blood Count 5.35, Hemoglobin 16.7, Hematocrit 48.6, Mean Corpuscular Volume 90.8, Mean Corpuscular Hemoglobin 31.2, Mean Corpuscular Hemoglobin Concent 34.4, Red Cell Distribution Width 12.9, Platelet Count 205, Neutrophils (%) (Auto) 79.6H, Lymphocytes (%) (Auto) 9.0L, Monocytes (%) (Auto) 9.1H, Eosinophils (%) (Auto) 0.9, Basophils (%) (Auto) 0.4, Neutrophils # (Auto) 11.4H, Lymphocytes # (Auto) 1.3L, Monocytes # (Auto) 1.3H, Eosinophils # (Auto) 0.1, Basophils # (Auto) 0.1, Nucleated Red Blood Cells % (auto) 0.0, Erythrocyte Sedimentation Rate 17, Anion Gap 9, Glomerular Filtration Rate 54.2, Blood Urea Nitrogen 15, Creatinine 1.37H, Sodium Level 131L, Potassium Level 4.7, Chloride Level 100, Carbon Dioxide Level 22, Calcium Level 9.4, Total Creatine Kinase 59, Creatine Kinase MB < 1.0, Creatine Kinase MB Relative Index 1.69, Troponin I < 0.02, C-Reactive Protein, Quantitative 11.00H, RA-Jad-M-Type Natriuretic Peptide 95 04/04/19 11:52: Lactic Acid Level 2.4*H 04/04/19 12:27: Prothrombin Time 14.0, Prothromb Time International Ratio 1.11, Activated Partial Thromboplast Time 33.2 04/04/19 12:42: Fibrinogen 681H 04/04/19 15:24: Lactic Acid Level 1.5, Total Creatine Kinase 48, Creatine Kinase MB < 1.0, Creatine Kinase MB Relative Index 2.08, Troponin I < 0.02 04/04/19 16:20: Lactic Acid Followup at 4 Hours 2.6*H 04/04/19 17:18: Bedside Glucose (Misc Panel) 134H 04/04/19 20:00: Bedside Glucose (Misc Panel) 123H 04/05/19 02:29: Total Creatine Kinase 66, Creatine Kinase MB < 1.0, Creatine Kinase MB Relative Index 1.52, Troponin I < 0.02 04/05/19 04:18: Urine Color YELLOW, Urine Appearance CLEAR, Urine pH 5.0, Urine Specific [place] 1.014, Urine Protein NEGATIVE, Urine Glucose (UA) NEGATIVE, Urine Ketones TRACEH, Urine Blood NEGATIVE, Urine Nitrite NEGATIVE, Urine Bilirubin NEGATIVE, Urine Urobilinogen 0.2, Urine Leukocyte Esterase NEGATIVE, Urine WBC (Auto) 0, Urine RBC (Auto) 0, Urine Hyaline Casts (Auto) 0, Urine Bacteria (Auto) NEGATIVE, Urine Squamous Epithelial Cells 0, Urine Sperm (Auto) 04/05/19 06:37: Bedside Glucose (Misc Panel) 118H 04/05/19 08:32: Nucleated Red Blood Cells % (auto) 0.0, Anion Gap 9, Glomerular Filtration Rate > 60.0, Blood Urea Nitrogen 15, Creatinine 1.20, Sodium Level 133L, Potassium Level 4.4, Chloride Level 102, Carbon Dioxide Level 22, Calcium Level 9.0, Aspartate Amino Transf (AST/SGOT) 15, Alanine Aminotransferase (ALT/SGPT) 20, Alkaline Phosphatase 71, Total Bilirubin 1.0, Total Protein 7.7, Albumin 3.0L, Albumin/Globulin Ratio 0.64L CBC/BMP Laboratory Tests 04/04/19 10:03 Red Blood Count 5.35, Mean Corpuscular Volume 90.8, Mean Corpuscular Hemoglobin 31.2, Mean Corpuscular Hemoglobin Concent 34.4, Red Cell Distribution Width 12.9, Neutrophils (%) (Auto) 79.6 H, Lymphocytes (%) (Auto) 9.0 L, Monocytes (%) (Auto) 9.1 H, Eosinophils (%) (Auto) 0.9, Basophils (%) (Auto) 0.4, Neutrophils # (Auto) 11.4 H, Lymphocytes # (Auto) 1.3 L, Monocytes # (Auto) 1.3 H, Eosinophils # (Auto) 0.1, Basophils # (Auto) 0.1, Calcium Level 9.4, Total Creatine Kinase 59 04/05/19 08:32 Red Blood Count 4.87, Mean Corpuscular Volume 88.7, Mean Corpuscular Hemoglobin 31.0, Mean Corpuscular Hemoglobin Concent 35.0, Red Cell Distribution Width 13.0, Calcium Level 9.0, Aspartate Amino Transf (AST/SGOT) 15, Alanine Aminotransferase (ALT/SGPT) 20, Alkaline Phosphatase 71, Total Bilirubin 1.0, Total Protein 7.7, Albumin 3.0 L Microbiology Microbiology 04/04/19 Blood Culture, Received Pending 04/04/19 Blood Culture, Received Pending 04/04/19 Respiratory Virus Panel (PCR) ([facility]) - Final, Complete Attending Note Attending Note patient comfortable no distress. minimal left basilar rales. no obvious leg swelling. Dr. Marte is planning procedures for today. VY SHULTZ Apr 05, 2019 09:47 Ko Garner MD Apr 05, 2019 13:32
[2019-04-05] MEDS ORDERED: ENOXAPARIN 100MG/1ML SYRINGE (J1650) SC SCH (11:00)
[2019-04-05 11:10] LABS: DRVV SCREEN 52.8 SEC
[2019-04-05 11:22] LABS: PTT LUPUS TYPE ANTICOAG SCREEN 1.3 (0-1.2)
[2019-04-05 11:39] LABS: DRVV CONFIRM 38.5 SEC
[2019-04-05 11:42] LABS: NORMALIZED RATIO 1.3 (0.00-1.20)
--- NOTE | 2019-04-05 12:59 | REP ---
Clinical: Thrombolysis . Comparison: None . Findings: The ventricles, sulci, and cisterns are normal in position and appearance. Mccarty-white differentiation is maintained. No acute intracranial hemorrhage, mass/mass effect, pathology or trauma/injury. No evidence for acute infarction. No extra-axial fluid collection. Calvarium is intact. Paranasal sinuses and mastoid air cells are clear. Impression: Mild age-related changes. No evidence for acute intracranial pathology or trauma/injury. Electronically Signed by Sebastian Tolliver MD 04/05/2019 12:51 P
[2019-04-05] MEDS ORDERED: BUPIVACAINE HCL 0.5% 10 ML VIAL As Ordered ONE (15:11)
[2019-04-05] MEDS ORDERED: LIDOCAINE 2% MDV 20 ML VIAL As Ordered ONE (15:12)
[2019-04-05] MEDS ORDERED: ISOVUE-300 61% 50ML VIAL (Q9967) As Ordered ONE (15:12)
[2019-04-05] MEDS ORDERED: HEPARIN 1,000 UNITS/ML 10ML VIAL (FOR RADIOLOGY& DIALYSIS ONLY) As Ordered ONE (15:12)
[2019-04-05] MEDS ORDERED: HEPARIN 25,000 UNITS/250 ML D5W BAG (100 UNITS/ML) As Ordered ONE (15:13)
[2019-04-05] MEDS ORDERED: ALTEPLASE 2 MG/2 ML VIAL (J2997 PER 1MG) As Ordered ONE (15:13)
[2019-04-05] MEDS ORDERED: ALTEPLASE RECOMBINANT IV ONE (16:00)
[2019-04-05] MEDS ORDERED: SODIUM CHLORIDE 0.9% INJ 10 ML SYR IV PRN (17:00)
[2019-04-05] MEDS: amLODIPine 5 MG TAB PO SCH (17:54)
[2019-04-05] MEDS: ALTEPLASE RECOMBINANT 25 MG in NS 225 ML IV SCH (17:54)
[2019-04-05] MEDS: lisinopriL 10 MG TAB PO SCH (17:55)
[2019-04-05] MEDS: SODIUM CHLORIDE 0.9% INJ 10 ML SYR IV SCH (18:00)
[2019-04-05 18:31] LABS: HEMATOCRIT 41.5 % (42.0-52.0); HEMOGLOBIN 14.3 g/dl (13.5-17.5)
[2019-04-05 18:49] LABS: PARTIAL THROMBOPLASTIN TIME 53.5 SECONDS (25.0-38.4)
[2019-04-05] MEDS: SIMVASTATIN 20 MG TAB PO SCH (20:50)
[2019-04-06] VITALS (22 sets, daily range): BP systolic 101–148; BP diastolic 59–97
[2019-04-06 00:20] LABS: HEMATOCRIT 40.5 % (42.0-52.0); HEMOGLOBIN 13.8 g/dl (13.5-17.5)
[2019-04-06 00:25] LABS: PARTIAL THROMBOPLASTIN TIME 59.1 SECONDS (25.0-38.4)
[2019-04-06] MEDS: HEPARIN DRIP 25,000 UNITS in IV 1 EA IV SCH (00:33)
[2019-04-06] MEDS: SODIUM CHLORIDE 0.9% INJ 10 ML SYR IV SCH ×2 (05:33→18:52)
[2019-04-06] MEDS: LEVOTHYROXINE 50MCG TABLET (0.05MG) PO SCH (05:33)
[2019-04-06 05:56] LABS: HEMATOCRIT 40.1 % (42.0-52.0); MEAN CORPUSCULAR HEMOGLOBIN 30.9 pg (27.0-33.0); MEAN CORPUSCULAR HGB CONC 34.9 g/dl (32.0-36.5); MEAN CORPUSCULAR VOLUME 88.5 fl (80.0-96.0); PLATELET COUNT, AUTOMATED 220 10^3/uL (150-450); RED BLOOD COUNT 4.53 10^6/uL (4.30-6.10); WHITE BLOOD COUNT 9.1 10^3/uL (4.0-10.0)
[2019-04-06 06:07] LABS: PARTIAL THROMBOPLASTIN TIME 57.9 SECONDS (25.0-38.4)
--- NOTE | 2019-04-06 07:30 | IPNPDOC ---
Subjective Date Seen The patient was seen on 04/06/19. Subjective Chief Complaint/HPI Patient lying comfortably in bed as I entered the room. He reports to be feeling well. He offers no c/o today. S/P thrombolysis and filter placement Constitutional: Denies: Chills, Fever Pulmonary: Denies: Dyspnea, Cough, Pleuritic Chest Pain Cardiovascular: Denies: Chest Pain, Palpitations, Orthopnea, Edema Gastrointestinal: Denies: Nausea, Vomiting, Abdominal Pain Psych: Reports: Mood Normal Objective Physical Examination General Exam: Positive: Alert, Cooperative, No Acute Distress Neck Exam: Positive: Supple; Negative: JVD Chest Exam: Positive: Clear to auscultation, Normal air movement; Negative: Rales, Rhonchi, Wheezing Heart Exam: Positive: Rate Normal (with peroids of tachycardia ) Extremity Exam: Positive: Normal pulses; Negative: Edema, Tenderness Psych Exam: Positive: Mental status NL, Mood NL Assessment /Plan Problems (1) DVT (deep venous thrombosis) Status: Acute Response to Treatment: Stable Problem Specific Plan: Consult Specialist Problem Text: 04/06/19: S/P Thrombolysis and filter placement. Currently on h eparin drip and Activase 04/05/19: Dr. Marte consulted and we await further tx recommendations, ? th rombectomy. Currently Lovenox 90 mg subcutaneous every 12 hours. (2) Bilateral pulmonary embolism Status: Acute Response to Treatment: Stable Problem Specific Plan: Consult Specialist Problem Text: 04/06/19: As above under assessment #1 04/05/19: On Levonox as discussed above ECHO RESULTS: Sinus tachycardia without intraventricular conduction disturbance. M-mode and two-dimensional echocardiography was performed with pulsed, continuous wave, color flow and tissue Doppler studies. Normal left ventricular size and wall thickness with hyperkinetic wall motion. Normal left atrial size but Doppler assessment of left ventricular (LV) diastolic function was abnormal with at least borderline increased estimated mean left atrial pressure. Normal right heart chamber sizes and motion with Doppler evidence of at least moderate pulmonary hypertension. Inferior vena cava (IVC) size upper limits of normal with reduced respiratory collapse in keeping with elevated central venous pressure. Normal appearing and functioning valvular structures. Normal aortic root size. (3) Hypertension Status: Chronic Response to Treatment: Stable Problem Text: 04/06/19: On Lisinopril. Pressures stable 04/05/19: Pressures stable. Lisinopril 10mg on hold d/t SANYA. We will continue to monitor (4) Diabetes mellitus Status: Chronic Response to Treatment: Stable Problem Text: 04/06/19: Sliding scale coverage, BG 128 this morning 04/05/19: Last A1C 7.8. Patient on Sliding scale coverage (5) SANYA (acute kidney injury) Status: Resolved Problem Text: 04/05/19: Renal function has returned to baseline Plan/VTE VTE Prophylaxis Ordered?: Yes (Lovenox) VS, I&O, 24H, Fishbone Vital Signs/I&O Vital Signs Date Time Temp Pulse Resp B/P (MAP) Pulse Ox O2 Delivery O2 Flow Rate FiO2 04/06/19 06:00 91 18 112/66 (81) 93 04/06/19 05:00 2.0 04/06/19 04:00 98.9 04/04/19 16:31 Room Air I&O- Last 24 Hours up to 6 AM 04/06/19 06:00 Intake Total 928 ml Output Total 1750 ml Balance -822 ml Laboratory Data 24H LABS Laboratory Tests 2 04/05/19 08:32: Nucleated Red Blood Cells % (auto) 0.0, Anion Gap 9, Glomerular Filtration Rate > 60.0, Blood Urea Nitrogen 15, Creatinine 1.20, Sodium Level 133L, Potassium Level 4.4, Chloride Level 102, Carbon Dioxide Level 22, Calcium Level 9.0, Aspartate Amino Transf (AST/SGOT) 15, Alanine Aminotransferase (ALT/SGPT) 20, Alkaline Phosphatase 71, Total Bilirubin 1.0, Total Protein 7.7, Albumin 3.0L, Albumin/Globulin Ratio 0.64L 04/05/19 11:33: Bedside Glucose (Misc Panel) 197H 04/05/19 17:19: Bedside Glucose (Misc Panel) 123H 04/05/19 17:58: Activated Partial Thromboplast Time 53.5H, Fibrinogen 700H 04/05/19 20:36: Bedside Glucose (Misc Panel) 128H 04/06/19 00:01: Activated Partial Thromboplast Time 59.1H, Fibrinogen 631H 04/06/19 05:30: Activated Partial Thromboplast Time 57.9H, Fibrinogen 601H, Nucleated Red Blood Cells % (auto) 0.0 CBC/BMP Laboratory Tests 04/05/19 08:32 Red Blood Count 4.87, Mean Corpuscular Volume 88.7, Mean Corpuscular Hemoglobin 31.0, Mean Corpuscular Hemoglobin Concent 35.0, Red Cell Distribution Width 13.0, Calcium Level 9.0, Aspartate Amino Transf (AST/SGOT) 15, Alanine Aminotransferase (ALT/SGPT) 20, Alkaline Phosphatase 71, Total Bilirubin 1.0, Total Protein 7.7, Albumin 3.0 L 04/05/19 18:10 04/06/19 00:01 04/06/19 05:30 Red Blood Count 4.53, Mean Corpuscular Volume 88.5, Mean Corpuscular Hemoglobin 30.9, Mean Corpuscular Hemoglobin Concent 34.9, Red Cell Distribution Width 12.7 Microbiology Microbiology 04/04/19 Blood Culture - Preliminary, Resulted No growth after 24 hours . All specim... 04/04/19 Blood Culture - Preliminary, Resulted No growth after 24 hours . All specim... 04/04/19 Respiratory Virus Panel (PCR) ([facility]) - Final, Complete Attending Note Attending Note Since he has had previous DVT, he now will need permanent anticoagulation therapy to reduce risk of future events. VY SHULTZ Apr 06, 2019 07:30 Ko Garner MD Apr 06, 2019 13:16
[2019-04-06] MEDS: VITAMIN D 1,000 INTERNATIONAL UNITS TABLET PO SCH (08:18)
[2019-04-06] MEDS: HumaLOG INSULIN (NovoLOG) PER UNIT SC SCH ×4 (08:18→20:32)
[2019-04-06] MEDS: amLODIPine 5 MG TAB PO SCH (08:18)
[2019-04-06] MEDS: lisinopriL 10 MG TAB PO SCH (08:19)
--- NOTE | 2019-04-06 10:42 | IPNPDOC ---
Date Seen The patient was seen on 04/06/19. Progress Note Vascular surgery. Dr. Marte HPI: 73 year old M with a past medical history significant for history of right lower extremity DVT postoperative 2001 at time of colovesicular repair. 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 The patient states that on Thursday he was walking to his car when he suddenly felt short of breath. He also felt fatigued. He noted radiating pain through to his back which was worse with a deep breath. Over the weekend he felt worse and felt more fatigued with decreased oral intake. States he was in bed for most of the weekend. The pt is s/p pulmonary thrombolysis and IVC filter placement as per Dr Marte 04/05/19. This AM the pt states breathing is improved from previously. The patient denies chest pain, lower extremity pain or lower extremity swelling. Denies any fevers, chills, Headache, palpitations, abdominal pain, N/V/D or changes in bowel or bladder habits. The patient denies any bleeding, epistaxis, hematuria, GI bleeding. PMHx: Hypertension Hypothyroidism Dyslipidemia History of post operative DVT right lower extremity 2001 Vitamin D deficiency PSHX: Removal of squamous cell carcinoma Colovesicular repair Dupuytren's contracture left hand PE: GEN: 73 yo M, appears stated age. Alert and oriented x 3. Currently appears comfortable. HEENT: Normocephalic, atraumatic. Moist mucous membranes. CHEST: Regular rate and rhythm, +S1, +S2 LUNGS: Clear to auscultation bilaterally. No wheezes, rales, or rhonchi. Breat lindsey appears symmetric and easy. ABD: Round, soft, non-tender, non-distended. +Bowel sounds throughout. No rebound or guarding. EXT: no hematoma or bleeding. Pulses palpable DP/PT bilaterally. No lower extremity edema appreciated. No erythema or calf tenderness noted. SKIN: [place], dry, warm. Capillary refill <2sec. No rashes. NEURO: Alert and oriented x 3. Cranial nerves III-XII are intact. No focal deficits appreciated. CTA chest Significant bilateral pulmonary emboli extending into the first and second order lingular, left lower lobe, right middle lobe and right lower lobe pulmonary arteries with mild lingular and left lower lobe consolidations as well as minimal dependent changes and atelectasis. Electronically Signed by Sebastian Tolliver MD 04/04/2019 11:50 A Lower extremity ultrasound Focal nonocclusive thrombus in the right popliteal vein. Left lower extremity: There is occlusive thrombus extending from the posterior tibial trunk into the popliteal vein and femoral vein, all the way to the common femoral vein. Impression: Extensive occlusive thrombus from the posterior tibial vein to the common femoral vein. Electronically Signed by Bradley Jones MD 04/04/2019 01:49 P TTE COMMENTS: Sinus tachycardia without intraventricular conduction disturbance. M-mode and two-dimensional echocardiography was performed with pulsed, continuous wave, color flow and tissue Doppler studies. Normal left ventricular size and wall thickness with hyperkinetic wall motion. Normal left atrial size but Doppler assessment of left ventricular (LV) diastolic function was abnormal with at least borderline increased estimated mean left atrial pressure. Normal right heart chamber sizes and motion with Doppler evidence of at least moderate pulmonary hypertension. Inferior vena cava (IVC) size upper limits of normal with reduced respiratory collapse in keeping with elevated central venous pressure. Normal appearing and functioning valvular structures. Normal aortic root size. No apparent intracardiac mass or pericardial effusion. DD: Ke Ferraro MD, [facility] 04/04/191938 CTH Impression: Mild age-related changes. No evidence for acute intracranial pathology or trauma/injury. Electronically Signed by Sebastian Tolliver MD 04/05/2019 12:51 P A&P: 1. Bilateral DVT/PE. S/P Pulmonary thrombolysis and IVC filter placement 04/05/[address] Marte. Vital signs noted currently heart rate 97, SBP 144, respiratory rate 16, oxygen saturation 94% RA. Serum creatinine 1.20. Fibrinogen 601 this AM Echocardiogram as above. Hypercoagulable workup pending The patient is reviewed with Dr. Marte. Continue with alteplase IV. Continue heparin gtt. The patient denies any bleeding. Monitor. VS, I&O, 24H, Fishbone Vital Signs/I&O Vital Signs Date Time Temp Pulse Resp B/P (MAP) Pulse Ox O2 Delivery O2 Flow Rate FiO2 04/06/19 08:18 144/75 04/06/19 06:00 91 18 93 04/06/19 05:00 2.0 04/06/19 04:00 98.9 04/04/19 16:31 Room Air I&O- Last 24 Hours up to 6 AM 04/06/19 06:00 Intake Total 928 ml Output Total 1750 ml Balance -822 ml Laboratory Data 24H LABS Laboratory Tests 2 04/05/19 11:33: Bedside Glucose (Misc Panel) 197H 04/05/19 17:19: Bedside Glucose (Misc Panel) 123H 04/05/19 17:58: Activated Partial Thromboplast Time 53.5H, Fibrinogen 700H 04/05/19 20:36: Bedside Glucose (Misc Panel) 128H 04/06/19 00:01: Activated Partial Thromboplast Time 59.1H, Fibrinogen 631H 04/06/19 05:30: Activated Partial Thromboplast Time 57.9H, Fibrinogen 601H, Nucleated Red Blood Cells % (auto) 0.0 CBC/BMP Laboratory Tests 04/05/19 18:10 04/06/19 00:01 04/06/19 05:30 Red Blood Count 4.53, Mean Corpuscular Volume 88.5, Mean Corpuscular Hemoglobin 30.9, Mean Corpuscular Hemoglobin Concent 34.9, Red Cell Distribution Width 12.7 Microbiology Microbiology 04/04/19 Blood Culture - Preliminary, Resulted No growth after 24 hours . All specim... 04/04/19 Blood Culture - Preliminary, Resulted No growth after 24 hours . All specim... 04/04/19 Respiratory Virus Panel (PCR) ([facility]) - Final, Complete Viola Bernabe Apr 06, 2019 10:42
[2019-04-06 12:14] LABS: HEMATOCRIT 43.7 % (42.0-52.0); HEMOGLOBIN 14.9 g/dl (13.5-17.5)
[2019-04-06 12:24] LABS: PARTIAL THROMBOPLASTIN TIME 51.3 SECONDS (25.0-38.4)
[2019-04-06] MEDS: ALTEPLASE RECOMBINANT 25 MG in NS 225 ML IV SCH (15:15)
[2019-04-06 17:50] LABS: HEMATOCRIT 39.2 % (42.0-52.0); HEMOGLOBIN 13.7 g/dl (13.5-17.5)
[2019-04-06 18:01] LABS: PARTIAL THROMBOPLASTIN TIME 50.1 SECONDS (25.0-38.4)
[2019-04-06] MEDS: SIMVASTATIN 20 MG TAB PO SCH (20:37)
[2019-04-06 23:48] LABS: HEMOGLOBIN 13.3 g/dl (13.5-17.5)
[2019-04-07] VITALS (11 sets, daily range): BP systolic 96–152; BP diastolic 55–90
[2019-04-07 00:05] LABS: PARTIAL THROMBOPLASTIN TIME 54.5 SECONDS (25.0-38.4)
[2019-04-07] MEDS: HEPARIN DRIP 25,000 UNITS in IV 1 EA IV SCH (00:20)
[2019-04-07] MEDS: LEVOTHYROXINE 50MCG TABLET (0.05MG) PO SCH (05:36)
[2019-04-07] MEDS: SODIUM CHLORIDE 0.9% INJ 10 ML SYR IV SCH ×2 (05:37→16:29)
[2019-04-07 06:02] LABS: HEMATOCRIT 37.8 % (42.0-52.0); MEAN CORPUSCULAR HEMOGLOBIN 30.5 pg (27.0-33.0); MEAN CORPUSCULAR HGB CONC 34.4 g/dl (32.0-36.5); MEAN CORPUSCULAR VOLUME 88.7 fl (80.0-96.0); PLATELET COUNT, AUTOMATED 195 10^3/uL (150-450); RED BLOOD COUNT 4.26 10^6/uL (4.30-6.10); WHITE BLOOD COUNT 8.5 10^3/uL (4.0-10.0)
[2019-04-07 06:13] LABS: PARTIAL THROMBOPLASTIN TIME 46.1 SECONDS (25.0-38.4)
--- NOTE | 2019-04-07 07:25 | IPNPDOC ---
Subjective Date Seen The patient was seen on 04/07/19. Subjective Chief Complaint/HPI The patient is lying comfortably in bed this morning. No new concerns expressed this morning. He reports to be feeling well. He states he was out of bed yesterday and walked the halls without any pain or dyspnea Constitutional: Denies: Chills, Fever Pulmonary: Denies: Dyspnea, Cough, Pleuritic Chest Pain Cardiovascular: Denies: Chest Pain, Palpitations, Orthopnea, Edema Gastrointestinal: Denies: Nausea, Vomiting, Abdominal Pain Psych: Reports: Mood Normal Objective Physical Examination General Exam: Positive: Alert, Cooperative, No Acute Distress Neck Exam: Positive: Supple; Negative: JVD Chest Exam: Positive: Clear to auscultation, Normal air movement; Negative: Rales, Rhonchi, Wheezing Heart Exam: Positive: Rate Normal (with peroids of tachycardia ) Extremity Exam: Positive: Normal pulses; Negative: Edema, Tenderness Psych Exam: Positive: Mental status NL, Mood NL Assessment /Plan Problems (1) DVT (deep venous thrombosis) Status: Acute Response to Treatment: Stable Problem Specific Plan: Consult Specialist Problem Text: 04/07/19: Day 2 s/p thrombolysis and IVC filter placement. Vascular continues to follow and monitor. He remains on Activase and Hep gtt this morning. Per vascular team, the plan is to transition him to Coumadin for permanent anticoagulation therapy to reduce risk of future events. 04/06/19: S/P Thrombolysis and filter placement. Currently on heparin drip and Activase 04/05/19: Dr. Marte consulted and we await further tx recommendations, ? thrombectomy. Currently Lovenox 90 mg subcutaneous every 12 hours. (2) Bilateral pulmonary embolism Status: Acute Response to Treatment: Stable Problem Specific Plan: Consult Specialist Problem Text: 04/07/19: As aboave under assessment #1, O2 sat 96% on RA 04/06/19: As above under assessment #1 04/05/19: On Levonox as discussed above ECHO RESULTS: Sinus tachycardia without intraventricular conduction disturbance. M-mode and two-dimensional echocardiography was performed with pulsed, continuous wave, color flow and tissue Doppler studies. Normal left ventricular size and wall thickness with hyperkinetic wall motion. Normal left atrial size but Doppler assessment of left ventricular (LV) diastolic function was abnormal with at least borderline increased estimated mean left atrial pressure. Normal right heart chamber sizes and motion with Doppler evidence of at least moderate pulmonary hypertension. Inferior vena cava (IVC) size upper limits of normal with reduced respiratory collapse in keeping with elevated central venous pressure. Normal appearing and functioning valvular structures. Normal aortic root size. (3) Hypertension Status: Chronic Response to Treatment: Stable Problem Text: 04/07/19: B/P remains controlled on current antihypertensive regimen 04/06/19: On Lisinopril. Pressures stable 04/05/19: Pressures stable. Lisinopril 10mg on hold d/t SANYA. We will continue to monitor (4) Diabetes mellitus Status: Chronic Response to Treatment: Stable Problem Text: 04/07/19: Remains on sliding scale coverage 04/06/19: Sliding scale coverage, BG 128 this morning 04/05/19: Last A1C 7.8. Patient on Sliding scale coverage (5) SANYA (acute kidney injury) Status: Resolved Problem Text: 04/05/19: Renal function has returned to baseline Plan/VTE VTE Prophylaxis Ordered?: Yes (Lovenox) VS, I&O, [facility] Vital Signs/I&O Vital Signs Date Time Temp Pulse Resp B/P (MAP) Pulse Ox O2 Delivery O2 Flow Rate FiO2 04/07/19 06:00 93 17 116/60 (78) 95 04/07/19 05:00 0.5 04/07/19 04:00 99.2 04/04/19 16:31 Room Air I&O- Last 24 Hours up to 6 AM 04/07/19 06:00 Intake Total 1788 ml Output Total 1375 ml Balance 413 ml Laboratory Data 24H LABS Laboratory Tests 2 04/06/19 11:53: Bedside Glucose (Misc Panel) 222H 04/06/19 11:56: Activated Partial Thromboplast Time 51.3H, Fibrinogen 631H 04/06/19 17:20: Bedside Glucose (Misc Panel) 125H 04/06/19 17:32: Activated Partial Thromboplast Time 50.1H, Fibrinogen 588H 04/06/19 20:31: Bedside Glucose (Misc Panel) 188H 04/06/19 23:34: Activated Partial Thromboplast Time 54.5H, Fibrinogen 507H 04/07/19 05:41: Activated Partial Thromboplast Time 46.1H, Fibrinogen 457H, Nucleated Red Blood Cells % (auto) 0.0 CBC/BMP Laboratory Tests 04/06/19 11:56 04/06/19 17:32 04/06/19 23:34 04/07/19 05:41 Red Blood Count 4.26 L, Mean Corpuscular Volume 88.7, Mean Corpuscular Hemoglobin 30.5, Mean Corpuscular Hemoglobin Concent 34.4, Red Cell Distribution Width 13.0 Microbiology Microbiology 04/04/19 Blood Culture - Preliminary, Resulted No Growth after 48 hours. All Specime... 04/04/19 Blood Culture - Preliminary, Resulted No Growth after 48 hours. All Specime... 04/04/19 Respiratory Virus Panel (PCR) ([facility]) - Final, Complete VY SHULTZP Apr 07, 2019 07:25
[2019-04-07] MEDS: VITAMIN D 1,000 INTERNATIONAL UNITS TABLET PO SCH (08:09)
[2019-04-07] MEDS: lisinopriL 10 MG TAB PO SCH (08:09)
[2019-04-07] MEDS: HumaLOG INSULIN (NovoLOG) PER UNIT SC SCH ×4 (08:09→21:00)
[2019-04-07] MEDS: amLODIPine 5 MG TAB PO SCH (08:09)
--- NOTE | 2019-04-07 09:11 | IPNPDOC ---
Date Seen The patient was seen on 04/07/19. Progress Note Vascular surgery. Dr. Marte HPI: 73 year old M with a past medical history significant for history of right lower extremity DVT postoperative 2001 at time of colovesicular repair. 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 The patient states that on Thursday he was walking to his car when he suddenly felt short of breath. He also felt fatigued. He noted radiating pain through to his back which was worse with a deep breath. Over the weekend he felt worse and felt more fatigued with decreased oral intake. States he was in bed for most of the weekend. The pt is s/p pulmonary thrombolysis and IVC filter placement as per Dr Marte 04/05/19. This AM the pt states he is comfortable, denies SOB. The patient denies chest pain, lower extremity pain or lower extremity swelling. Denies any fevers, chills, Headache, palpitations, abdominal pain, N/V/D or changes in bowel or bladder habits. The patient denies any bleeding, epistaxis, hematuria, GI bleeding. PMHx: Hypertension Hypothyroidism Dyslipidemia History of post operative DVT right lower extremity 2001 Vitamin D deficiency PSHX: Removal of squamous cell carcinoma Colovesicular repair Dupuytren's contracture left hand PE: GEN: 73 yo M, appears stated age. Currently appears comfortable. HEENT: Normocephalic, atraumatic. Moist mucous membranes. CHEST: RRR, +S1, +S2 LUNGS: CTA. No wheezes, rales, or rhonchi. Breathing appears symmetric and easy. ABD: Round, soft, non-tender, non-distended. +Bowel sounds throughout. No rebound or guarding. EXT: no hematoma or bleeding. Pulses palpable DP/PT bilaterally. No lower extremity edema appreciated. No erythema or calf tenderness noted. SKIN: [place], dry, warm. Capillary refill <2sec. No rashes. NEURO: Alert and oriented x 3. Cranial nerves III-XII are intact. No focal deficits appreciated. CTA chest Significant bilateral pulmonary emboli extending into the first and second order lingular, left lower lobe, right middle lobe and right lower lobe pulmonary arteries with mild lingular and left lower lobe consolidations as well as minimal dependent changes and atelectasis. Electronically Signed by Sebastian Tolliver MD 04/04/2019 11:50 A Lower extremity ultrasound Focal nonocclusive thrombus in the right popliteal vein. Left lower extremity: There is occlusive thrombus extending from the posterior tibial trunk into the popliteal vein and femoral vein, all the way to the common femoral vein. Impression: Extensive occlusive thrombus from the posterior tibial vein to the common femoral vein. Electronically Signed by Bradley Jones MD 04/04/2019 01:49 P TTE COMMENTS: Sinus tachycardia without intraventricular conduction disturbance. M-mode and two-dimensional echocardiography was performed with pulsed, continuous wave, color flow and tissue Doppler studies. Normal left ventricular size and wall thickness with hyperkinetic wall motion. Normal left atrial size but Doppler assessment of left ventricular (LV) diastolic function was abnormal with at least borderline increased estimated mean left atrial pressure. Normal right heart chamber sizes and motion with Doppler evidence of at least moderate pulmonary hypertension. Inferior vena cava (IVC) size upper limits of normal with reduced respiratory collapse in keeping with elevated central venous pressure. Normal appearing and functioning valvular structures. Normal aortic root size. No apparent intracardiac mass or pericardial effusion. DD: Ke Ferraro MD, [facility] 04/04/191938 CTH Impression: Mild age-related changes. No evidence for acute intracranial pathology or trauma/injury. Electronically Signed by Sebastian Tolliver MD 04/05/2019 12:51 P A&P: 1. Bilateral DVT/PE. S/P Pulmonary thrombolysis and IVC filter placement 04/05/[address] Marte. Vital signs noted currentlyHR 93, SBP 129, respiratory rate 16, oxygen saturation 95%. Serum creatinine 1.20. BMP pending today. Fibrinogen 457 this AM Echocardiogram as above. Hypercoagulable workup pending The patient is reviewed with Dr. Marte. Plan as per Dr Marte: Finish current bag of alteplase IV. (pt will likely finish approx 2-3 pm). Continue heparin gtt at current rate until finishes alteplase then plan for he le gtt per protocol. Monitor PTT. Plan to start Coumadin this PM. Will order 5 mg daily, Baseline INR 1.11 04/04/19. Monitor daily INR. Pt could be discharged with Lovenox until therapeutic INR. The patient denies any bleeding but will continue with Q6 H/H after alteplase is D/Cd as Hgb is noted to be 13, baseline 14. No obvious source of bleeding is identified at this time. FOB pending. CTH was unremarkable 04/05/19. Last Colonoscopy was 03/18 [place], unremarkable. Possibly consider updating as outpt as per PCP. Monitor. VS, I&O, 24H, Fishbone Vital Signs/I&O Vital Signs Date Time Temp Pulse Resp B/P (MAP) Pulse Ox O2 Delivery O2 Flow Rate FiO2 04/07/19 08:09 93 129/68 04/07/19 06:00 17 95 04/07/19 05:00 0.5 04/07/19 04:00 99.2 04/04/19 16:31 Room Air I&O- Last 24 Hours up to 6 AM 04/07/19 06:00 Intake Total 1788 ml Output Total 1375 ml Balance 413 ml Laboratory Data 24H LABS Laboratory Tests 2 04/06/19 11:53: Bedside Glucose (Misc Panel) 222H 04/06/19 11:56: Activated Partial Thromboplast Time 51.3H, Fibrinogen 631H 04/06/19 17:20: Bedside Glucose (Misc Panel) 125H 04/06/19 17:32: Activated Partial Thromboplast Time 50.1H, Fibrinogen 588H 04/06/19 20:31: Bedside Glucose (Misc Panel) 188H 04/06/19 23:34: Activated Partial Thromboplast Time 54.5H, Fibrinogen 507H 04/07/19 05:41: Activated Partial Thromboplast Time 46.1H, Fibrinogen 457H, Nucleated Red Blood Cells % (auto) 0.0 04/07/19 07:41: Bedside Glucose (Misc Panel) 159H CBC/BMP Laboratory Tests 04/06/19 11:56 04/06/19 17:32 04/06/19 23:34 04/07/19 05:41 Red Blood Count 4.26 L, Mean Corpuscular Volume 88.7, Mean Corpuscular Hemoglobin 30.5, Mean Corpuscular Hemoglobin Concent 34.4, Red Cell Distribution Width 13.0 Microbiology Microbiology 04/04/19 Blood Culture - Preliminary, Resulted No Growth after 48 hours. All Specime... 04/04/19 Blood Culture - Preliminary, Resulted No Growth after 48 hours. All Specime... 04/04/19 Respiratory Virus Panel (PCR) ([facility]) - Final, Complete Viola Bernabe Apr 07, 2019 09:11
[2019-04-07 12:27] LABS: HEMATOCRIT 40.1 % (42.0-52.0); HEMOGLOBIN 13.8 g/dl (13.5-17.5)
[2019-04-07 12:39] LABS: PARTIAL THROMBOPLASTIN TIME 58.2 SECONDS (25.0-38.4)
[2019-04-07 12:46] LABS: BLOOD UREA NITROGEN 14 MG/DL (7-18); CALCIUM LEVEL 8.4 MG/DL (8.8-10.2); CARBON DIOXIDE LEVEL 24 MEQ/L (21-32); CHLORIDE LEVEL 102 MEQ/L (98-107); GLOMERULAR FILTRATION RATE > 60.0 (>42); GLUCOSE, FASTING 238 MG/DL (70-100); SODIUM LEVEL 134 MEQ/L (136-145)
[2019-04-07 14:08] LABS: HEXAGONAL PHASE PHOSPHOLIPID 7 sec (0-11)
[2019-04-07] MEDS ORDERED: HEPARIN SOD (PORCINE) 5000 UNITS/ML VIAL IV PRN (16:00)
[2019-04-07] MEDS ORDERED: HEPARIN DRIP 25,000 UNITS in IV 1 EA IV SCH (16:00)
[2019-04-07] MEDS ORDERED: WARFARIN SOD 5 MG TAB PO SCH (17:00)
[2019-04-07] MEDS: SIMVASTATIN 20 MG TAB PO SCH (21:10)
[2019-04-07] MEDS: CARBAMIDE PEROXIDE 6.5% OTIC SOLN 15ML AU SCH (21:10)
[2019-04-08] VITALS: BP 127/61
[2019-04-08 00:06] LABS: BODY FLUID CULTURE Not Indicated (.); LEGIONELLA ANTIGEN URINE Negative (Negative); ORGANISM ID Not indicated. (.); SPECIMEN SOURCE Urine (.); URINE STREP PNEUMONIAE ANTIGEN Negative (Negative)
[2019-04-08 04:00] VITALS: BP 121/59
[2019-04-08] MEDS: LEVOTHYROXINE 50MCG TABLET (0.05MG) PO SCH (05:48)
[2019-04-08] MEDS: SODIUM CHLORIDE 0.9% INJ 10 ML SYR IV SCH ×2 (05:49→17:15)
[2019-04-08 06:18] LABS: HEMATOCRIT 37.8 % (42.0-52.0); HEMOGLOBIN 13.1 g/dl (13.5-17.5); MEAN CORPUSCULAR HEMOGLOBIN 31.4 pg (27.0-33.0); MEAN CORPUSCULAR HGB CONC 34.7 g/dl (32.0-36.5); MEAN CORPUSCULAR VOLUME 90.6 fl (80.0-96.0); PLATELET COUNT, AUTOMATED 168 10^3/uL (150-450); RED BLOOD COUNT 4.17 10^6/uL (4.30-6.10)
[2019-04-08 06:29] LABS: INR 1.21
[2019-04-08 06:40] LABS: BLOOD UREA NITROGEN 11 MG/DL (7-18); CALCIUM LEVEL 8.6 MG/DL (8.8-10.2); CARBON DIOXIDE LEVEL 27 MEQ/L (21-32); CHLORIDE LEVEL 104 MEQ/L (98-107); CREATININE FOR GFR 1.03 MG/DL (0.70-1.30); GLOMERULAR FILTRATION RATE > 60.0 (>42); GLUCOSE, FASTING 165 MG/DL (70-100); POTASSIUM SERUM 4.2 MEQ/L (3.5-5.1); SODIUM LEVEL 138 MEQ/L (136-145)
--- NOTE | 2019-04-08 07:17 | IPNPDOC ---
Subjective Date Seen The patient was seen on 04/08/19. Subjective Chief Complaint/HPI Patient sitting up in bed, comfortably as I entered the room. Patient reports to be feeling "great". He offers no complaints Constitutional: Denies: Chills, Fever Pulmonary: Denies: Dyspnea, Cough, Pleuritic Chest Pain Cardiovascular: Denies: Chest Pain, Palpitations, Orthopnea, Edema Gastrointestinal: Denies: Nausea, Vomiting, Abdominal Pain Psych: Reports: Mood Normal Objective Physical Examination General Exam: Positive: Alert, Cooperative, No Acute Distress Neck Exam: Positive: Supple; Negative: JVD Chest Exam: Positive: Clear to auscultation, Normal air movement; Negative: Rales, Rhonchi, Wheezing Heart Exam: Positive: Rate Normal (with peroids of tachycardia ) Extremity Exam: Positive: Normal pulses; Negative: Edema, Tenderness Psych Exam: Positive: Mental status NL, Mood NL Assessment /Plan Problems (1) DVT (deep venous thrombosis) Status: Acute Response to Treatment: Stable Problem Specific Plan: Consult Specialist Problem Text: 04/08/19: Remains on Heparin gtt. Coumadin 5 mg was started last evening. INR this morning 1.21. Vascular continues to follow. Of Alteplase to can change to Lovenox to replace Heparin drip. Will increase warfarin to 7.5 to try to accelerate achieving therapeutic effect sooner so we can avoid sending him home with [place] Lovenox. 04/07/19: Day 2 s/p thrombolysis and IVC filter placement. Vascular continues to follow and monitor. He remains on Activase and Hep gtt this morning. Per vascular team, the plan is to transition him to Coumadin for permanent anticoagulation therapy to reduce risk of future events. 04/06/19: S/P Thrombolysis and filter placement. Currently on heparin drip and A ctivase 04/05/19: Dr. Marte consulted and we await further tx recommendations, ? thrombectomy. Currently Lovenox 90 mg subcutaneous every 12 hours. (2) Bilateral pulmonary embolism Status: Acute Response to Treatment: Stable Problem Specific Plan: Consult Specialist Problem Text: 04/08/19: As above under assessment #1 04/07/19: As aboave under assessment #1, O2 sat 96% on RA 04/06/19: As above under assessment #1 04/05/19: On Levonox as discussed above ECHO RESULTS: Sinus tachycardia without intraventricular conduction disturbance. M-mode and two-dimensional echocardiography was performed with pulsed, continuous wave, color flow and tissue Doppler studies. Normal left ventricular size and wall thickness with hyperkinetic wall motion. Normal left atrial size but Doppler assessment of left ventricular (LV) diastolic function was abnormal with at least borderline increased estimated mean left atrial pressure. Normal right heart chamber sizes and motion with Doppler evidence of at least moderate pulmonary hypertension. Inferior vena cava (IVC) size upper limits of normal with reduced respiratory collapse in keeping with elevated central venous pressure. Normal appearing and functioning valvular structures. Normal aortic root size. (3) Hypertension Status: Chronic Response to Treatment: Stable Problem Text: 04/08/19: Pressures remain stable 04/07/19: B/P remains controlled on current antihypertensive regimen 04/06/19: On Lisinopril. Pressures stable 04/05/19: Pressures stable. Lisinopril 10mg on hold d/t SANYA. We will continue to monitor (4) Diabetes mellitus Status: Chronic Response to Treatment: Stable Problem Text: 04/07/19: Remains on sliding scale coverage 04/06/19: Sliding scale coverage, BG 128 this morning 04/05/19: Last A1C 7.8. Patient on Sliding scale coverage (5) SANYA (acute kidney injury) Status: Resolved Problem Text: 04/05/19: Renal function has returned to baseline Plan/VTE VTE Prophylaxis Ordered?: Yes (Lovenox) VS, I&O, 24H, Fishbone Vital Signs/I&O Vital Signs Date Time Temp Pulse Resp B/P (MAP) Pulse Ox O2 Delivery O2 Flow Rate FiO2 04/08/19 04:00 98.8 81 16 121/59 (79) 95 2.0 04/04/19 16:31 Room Air I&O- Last 24 Hours up to 6 AM 04/08/19 05:59 Intake Total 1872 ml Output Total 2450 ml Balance -578 ml Laboratory Data 24H LABS Laboratory Tests 2 04/07/19 07:41: Bedside Glucose (Misc Panel) 159H 04/07/19 12:09: Bedside Glucose (Misc Panel) 174H, Activated Partial Thromboplast Time 58.2H, Fibrinogen 383, Anion Gap 8, Glomerular Filtration Rate > 60.0, Blood Urea Nitrogen 14, Creatinine 1.20, Sodium Level 134L, Potassium Level 4.0, Chloride Level 102, Carbon Dioxide Level 24, Calcium Level 8.4L 04/07/19 16:21: Bedside Glucose (Misc Panel) 126H 04/07/19 20:54: Bedside Glucose (Misc Panel) 194H 04/07/19 22:09: Activated Partial Thromboplast Time 135.2*H 04/07/19 22:57: Activated Partial Thromboplast Time 110.1H 04/08/19 05:58: Prothrombin Time 15.0H, Prothromb Time International Ratio 1.21 04/08/19 05:59: Activated Partial Thromboplast Time 77.3H, Nucleated Red Blood Cells % (auto) 0.0, Anion Gap 7L, Glomerular Filtration Rate > 60.0, Blood Urea Nitrogen 11, Creatinine 1.03, Sodium Level 138, Potassium Level 4.2, Chloride Level 104, Carbon Dioxide Level 27, Calcium Level 8.6L CBC/BMP Laboratory Tests 04/07/19 12:09 Calcium Level 8.4 L 04/08/19 05:59 Calcium Level 8.6 L, Red Blood Count 4.17 L, Mean Corpuscular Volume 90.6, Mean Corpuscular Hemoglobin 31.4, Mean Corpuscular Hemoglobin Concent 34.7, Red Cell Distribution Width 12.8 Microbiology Microbiology 04/04/19 Blood Culture - Preliminary, Resulted No Growth after 72 hours. All specime... 04/04/19 Blood Culture - Preliminary, Resulted No Growth after 72 hours. All specime... 04/04/19 Respiratory Virus Panel (PCR) ([facility]) - Final, Complete VY SHULTZ Apr 08, 2019 07:17 Ko Garner MD Apr 08, 2019 10:29
[2019-04-08 08:00] VITALS: BP 151/77
[2019-04-08] MEDS: VITAMIN D 1,000 INTERNATIONAL UNITS TABLET PO SCH (08:06)
[2019-04-08] MEDS: HumaLOG INSULIN (NovoLOG) PER UNIT SC SCH ×4 (08:06→21:55)
[2019-04-08] MEDS: amLODIPine 5 MG TAB PO SCH (08:06)
[2019-04-08] MEDS: lisinopriL 10 MG TAB PO SCH (08:07)
--- NOTE | 2019-04-08 08:52 | IPNPDOC ---
Date Seen The patient was seen on 04/08/19. Progress Note Vascular surgery. Dr. Marte HPI: 73 year old M with a past medical history significant for history of right lower extremity DVT postoperative 2001 at time of colovesicular repair. 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 The patient states that on Thursday he was walking to his car when he suddenly felt short of breath. He also felt fatigued. He noted radiating pain through to his back which was worse with a deep breath. Over the weekend he felt worse and felt more fatigued with decreased oral intake. States he was in bed for most of the weekend. The pt is s/p pulmonary thrombolysis, tpa discontinued 04/07/19 and IVC filter placement as per Dr Marte 04/05/19. This AM the pt states he is comfortable, denies SOB. The patient denies chest pain, lower extremity pain or lower extremity swelling. Denies any fevers, chills, Headache, palpitations, abdominal pain, N/V/D or changes in bowel or bladder habits. The patient denies any bleeding, epistaxis, hematuria, GI bleeding. PMHx: Hypertension Hypothyroidism Dyslipidemia History of post operative DVT right lower extremity 2001 Vitamin D deficiency PSHX: Removal of squamous cell carcinoma Colovesicular repair Dupuytren's contracture left hand PE: GEN: 73 yo M, appears stated age. Currently appears comfortable. HEENT: Normocephalic, atraumatic. Moist mucous membranes. CHEST: RRR, +S1, +S2 LUNGS: CTA. No wheezes, rales, or rhonchi. Breathing appears symmetric and easy. ABD: Round, soft, non-tender, non-distended. +Bowel sounds throughout. No rebound or guarding. EXT: no hematoma or bleeding. Pulses palpable DP/PT bilaterally. No lower extremity edema appreciated. No erythema or calf tenderness noted. SKIN: [place], dry, warm. Capillary refill <2sec. No rashes. NEURO: Alert and oriented x 3. Cranial nerves III-XII are intact. No focal deficits appreciated. CTA chest Significant bilateral pulmonary emboli extending into the first and second order lingular, left lower lobe, right middle lobe and right lower lobe pulmonary arteries with mild lingular and left lower lobe consolidations as well as minimal dependent changes and atelectasis. Electronically Signed by Sebastian Tolliver MD 04/04/2019 11:50 A Lower extremity ultrasound Focal nonocclusive thrombus in the right popliteal vein. Left lower extremity: There is occlusive thrombus extending from the posterior tibial trunk into the popliteal vein and femoral vein, all the way to the common femoral vein. Impression: Extensive occlusive thrombus from the posterior tibial vein to the common femoral vein. Electronically Signed by Bradley Jones MD 04/04/2019 01:49 P TTE COMMENTS: Sinus tachycardia without intraventricular conduction disturbance. M-mode and two-dimensional echocardiography was performed with pulsed, continuou s wave, color flow and tissue Doppler studies. Normal left ventricular size and wall thickness with hyperkinetic wall motion. Normal left atrial size but Doppler assessment of left ventricular (LV) di astolic function was abnormal with at least borderline increased estimated mean left atrial pressure. Normal right heart chamber sizes and motion with Doppler evidence of at least moderate pulmonary hypertension. Inferior vena cava (IVC) size upper limits of normal with reduced respiratory collapse in keeping with elevated central venous pressure. Normal appearing and functioning valvular structures. Normal aortic root size. No apparent intracardiac mass or pericardial effusion. DD: Ke Ferraro MD, [facility] 04/04/191938 CTH Impression: Mild age-related changes. No evidence for acute intracranial pathology or trauma/injury. Electronically Signed by Sebastian Tolliver MD 04/05/2019 12:51 P A&P: 1. Bilateral DVT/PE. S/P Pulmonary thrombolysis and IVC filter placement 04/05/[address] Marte. Tpa discontinued 04/07/19. Serum creatinine 1.03. Hypercoagulable workup pending The patient is reviewed with Dr. Marte. Plan as per Dr Marte: Heparin gtt per protocol. Monitor PTT. Coumadin 5 mg daily, Baseline INR 1.11 04/04/19. Monitor daily INR. Pt could be discharged with Lovenox until therapeutic INR. Primary team can manage as outpt. Hgb is noted to be 13.1 baseline 14. No obvious source of bleeding is identified at this time. FOB pending. CTH was unremarkable 04/05/19. Last Colonoscopy was 03/18 [place], unremarkable. Possibly consider updating as outpt as per PCP. Monitor. From vascular standpoint Pt is OK for discharge as per Primary service with Coumadin and Lovenox until therapeutic INR. Discussed with Fina FELDMAN with primary team this AM. Plan for FU with Dr Marte's office 7-10 days, FU US LLE 3 mo. VS, I&O, 24H, Fishbone Vital Signs/I&O Vital Signs Date Time Temp Pulse Resp B/P (MAP) Pulse Ox O2 Delivery O2 Flow Rate FiO2 04/08/19 08:07 151/77 04/08/19 08:06 109 04/08/19 04:00 98.8 16 95 2.0 04/04/19 16:31 Room Air I&O- Last 24 Hours up to 6 AM 04/08/19 06:00 Intake Total 1752 ml Output Total 2625 ml Balance -873 ml Laboratory Data 24H LABS Laboratory Tests 2 04/07/19 12:09: Activated Partial Thromboplast Time 58.2H, Fibrinogen 383, Bedside Glucose (Misc Panel) 174H, Anion Gap 8, Glomerular Filtration Rate > 60.0, Blood Urea Nitrogen 14, Creatinine 1.20, Sodium Level 134L, Potassium Level 4.0, Chloride Level 102, Carbon Dioxide Level 24, Calcium Level 8.4L 04/07/19 16:21: Bedside Glucose (Misc Panel) 126H 04/07/19 20:54: Bedside Glucose (Misc Panel) 194H 04/07/19 22:09: Activated Partial Thromboplast Time 135.2*H 04/07/19 22:57: Activated Partial Thromboplast Time 110.1H 04/08/19 05:58: Prothrombin Time 15.0H, Prothromb Time International Ratio 1.21 04/08/19 05:59: Activated Partial Thromboplast Time 77.3H, Nucleated Red Blood Cells % (auto) 0.0, Anion Gap 7L, Glomerular Filtration Rate > 60.0, Blood Urea Nitrogen 11, Creatinine 1.03, Sodium Level 138, Potassium Level 4.2, Chloride Level 104, Carbon Dioxide Level 27, Calcium Level 8.6L CBC/BMP Laboratory Tests 04/07/19 12:09 Calcium Level 8.4 L 04/08/19 05:59 Calcium Level 8.6 L, Red Blood Count 4.17 L, Mean Corpuscular Volume 90.6, Mean Corpuscular Hemoglobin 31.4, Mean Corpuscular Hemoglobin Concent 34.7, Red Cell Distribution Width 12.8 Microbiology Microbiology 04/04/19 Blood Culture - Preliminary, Resulted No Growth after 72 hours. All specime... 04/04/19 Blood Culture - Preliminary, Resulted No Growth after 72 hours. All specime... 04/04/19 Respiratory Virus Panel (PCR) ([facility]) - Final, Complete Viola Bernabe Apr 08, 2019 08:52
[2019-04-08 13:12] VITALS: BP 148/79
[2019-04-08 14:00] VITALS: BP 139/77
[2019-04-08] MEDS: ENOXAPARIN 100MG/1ML SYRINGE (J1650) SC SCH (15:48)
[2019-04-08] MEDS ORDERED: WARFARIN SOD 7.5 MG TAB PO SCH (17:00)
[2019-04-08] MEDS: CARBAMIDE PEROXIDE 6.5% OTIC SOLN 15ML AU SCH (21:56)
[2019-04-08] MEDS: SIMVASTATIN 20 MG TAB PO SCH (21:56)
[2019-04-09] VITALS: BP 158/83
[2019-04-09 00:06] LABS: ANTI THROMBIN 3 ANTIGEN IMMUNO 94 % (72-124); ANTI THROMBIN 3 FUNCT ACTIVITY 108 % (75-135); ANTINUCLEAR ANTIBODIES DIRECT Negative (Negative); CARDIOLIPIN IGA ANTIBODY <9 APL U/mL (0-11); CARDIOLIPIN IGG ANTIBODY <9 GPL U/mL (0-14); CARDIOLIPIN IGM ANTIBODY <9 MPL U/mL (0-12); PHOSPHOLIPIDS LEVEL 173 mg/dL (150-250); PROTEIN C FUNCTIONAL ACTIVITY 98 % (73-180); PROTEIN S FUNCTIONAL ACTIVITY 54 % (63-140)
[2019-04-09] MEDS: ENOXAPARIN 100MG/1ML SYRINGE (J1650) SC SCH ×2 (03:35→16:22)
[2019-04-09] MEDS: LEVOTHYROXINE 50MCG TABLET (0.05MG) PO SCH (05:47)
[2019-04-09] MEDS: SODIUM CHLORIDE 0.9% INJ 10 ML SYR IV SCH ×2 (05:48→18:04)
[2019-04-09 06:00] VITALS: BP 130/82
[2019-04-09 06:22] LABS: INR 1.27; PROTHROMBIN TIME 15.6 SECONDS (11.8-14.0)
[2019-04-09] MEDS: HumaLOG INSULIN (NovoLOG) PER UNIT SC SCH ×4 (08:12→20:33)
[2019-04-09] MEDS: VITAMIN D 1,000 INTERNATIONAL UNITS TABLET PO SCH (08:12)
[2019-04-09] MEDS: lisinopriL 10 MG TAB PO SCH (08:12)
[2019-04-09] MEDS: amLODIPine 5 MG TAB PO SCH (08:13)
--- NOTE | 2019-04-09 09:05 | IPNPDOC ---
Subjective Date Seen The patient was seen on 04/09/19. Subjective Chief Complaint/HPI no cough, no CP, no dyspnea, no bleeding or bruising. Eyes: Denies: Vision change ENT: Denies: Head Aches Pulmonary: Denies: Dyspnea, Cough, Pleuritic Chest Pain Cardiovascular: Denies: Chest Pain, Palpitations Gastrointestinal: Denies: Nausea, Abdominal Pain Hematologic: Denies: Bruising, Petecchia Endocrine: Denies: Polydipsia Psych: Reports: Mood Normal Objective Physical Examination General Exam: Positive: Alert, Cooperative, No Acute Distress Neck Exam: Positive: Supple; Negative: JVD Chest Exam: Positive: Clear to auscultation, Normal air movement; Negative: Rales, Rhonchi, Wheezing Heart Exam: Positive: Rate Normal (with peroids of tachycardia ) Extremity Exam: Positive: Normal pulses; Negative: Edema, Tenderness Psych Exam: Positive: Mental status NL, Mood NL Assessment /Plan Problems (1) DVT (deep venous thrombosis) Status: Acute Response to Treatment: Stable Problem Specific Plan: Consult Specialist Problem Text: 04/09: transitioned yesterday to Lovenox. will continue until warfarin therapeutic. INR 1.27 today so increase warfarin to 10mg 04/08/19: Remains on Heparin gtt. Coumadin 5 mg was started last evening. INR this morning 1.21. Vascular continues to follow. Of Alteplase to can change to Lovenox to replace Heparin drip. Will increase warfarin to 7.5 to try to accelerate achieving therapeutic effect sooner so we can avoid sending him home with SC Lovenox. 04/07/19: Day 2 s/p thrombolysis and IVC filter placement. Vascular continues to follow and monitor. He remains on Activase and Hep gtt this morning. Per vascul ar team, the plan is to transition him to Coumadin for permanent anticoagulation therapy to reduce risk of future events. 04/06/19: S/P Thrombolysis and filter placement. Currently on heparin drip and Activase 04/05/19: Dr. Marte consulted and we await further tx recommendations, ? thrombectomy. Currently Lovenox 90 mg subcutaneous every 12 hours. (2) Bilateral pulmonary embolism Status: Acute Response to Treatment: Stable Problem Specific Plan: Consult Specialist Problem Text: 04/08/19: As above under assessment #1 04/07/19: As aboave under assessment #1, O2 sat 96% on RA 7/31/19: As above under assessment #1 04/05/19: On Levonox as discussed above ECHO RESULTS: Sinus tachycardia without intraventricular conduction disturbance. M-mode and two-dimensional echocardiography was performed with pulsed, continuous wave, color flow and tissue Doppler studies. Normal left ventricular size and wall thickness with hyperkinetic wall motion. Normal left atrial size but Doppler assessment of left ventricular (LV) diastolic function was abnormal with at least borderline increased estimated mean left atrial pressure. Normal right heart chamber sizes and motion with Doppler evidence of at least moderate pulmonary hypertension. Inferior vena cava (IVC) size upper limits of normal with reduced respiratory collapse in keeping with elevated central venous pressure. Normal appearing and functioning valvular structures. Normal aortic root size. (3) Hypertension Status: Chronic Response to Treatment: Stable Problem Text: 04/08/19: Pressures remain stable 04/07/19: B/P remains controlled on current antihypertensive regimen 04/06/19: On Lisinopril. Pressures stable 04/05/19: Pressures stable. Lisinopril 10mg on hold d/t SANYA. We will continue to monitor (4) Diabetes mellitus Status: Chronic Response to Treatment: Stable Problem Text: 04/09 will resume usual regimen as outpatient at discharge. Will restart metformin today at his home dose. 04/07/19: Remains on sliding scale coverage 04/06/19: Sliding scale coverage, BG 128 this morning 04/05/19: Last A1C 7.8. Patient on Sliding scale coverage (5) SANYA (acute kidney injury) Status: Resolved Problem Text: 04/05/19: Renal function has returned to baseline Plan/VTE VTE Prophylaxis Ordered?: Yes (Lovenox) Plan Anticipated Discharge: Home VS, I&O, 24H, Fishbone Vital Signs/I&O Vital Signs Date Time Temp Pulse Resp B/P (MAP) Pulse Ox O2 Delivery O2 Flow Rate FiO2 04/09/19 08:13 97 130/82 04/09/19 06:00 97.1 18 96 04/08/19 04:00 2.0 04/04/19 16:31 Room Air I&O- Last 24 Hours up to 6 AM 04/09/19 06:00 Intake Total 705 ml Output Total 2075 ml Balance -1370 ml Laboratory Data 24H LABS Laboratory Tests 2 04/08/19 11:26: Bedside Glucose (Misc Panel) 213H 04/08/19 16:35: Bedside Glucose (Misc Panel) 173H 04/08/19 20:27: Bedside Glucose (Misc Panel) 256H 04/09/19 05:52: Prothrombin Time 15.6H, Prothromb Time International Ratio 1.27 04/09/19 06:47: Bedside Glucose (Misc Panel) 206H Microbiology Microbiology 04/04/19 Blood Culture - Preliminary, Resulted No Growth after 72 hours. All specime... 04/04/19 Blood Culture - Preliminary, Resulted No Growth after 72 hours. All specime... 04/04/19 Respiratory Virus Panel (PCR) ([facility]) - Final, Complete Ko Garner MD Apr 09, 2019 09:05
[2019-04-09] MEDS: metFORMIN (GLUCOPHAGE) 1000 MG TABLET PO SCH ×2 (11:00→18:03)
[2019-04-09 14:00] VITALS: BP 160/85
[2019-04-09] MEDS: WARFARIN SOD 5 MG TAB PO SCH (16:23)
[2019-04-09] MEDS: SIMVASTATIN 20 MG TAB PO SCH (20:00)
[2019-04-09] MEDS: CARBAMIDE PEROXIDE 6.5% OTIC SOLN 15ML AU SCH (20:00)
[2019-04-09 22:00] VITALS: BP 162/74
[2019-04-10] MEDS: ENOXAPARIN 100MG/1ML SYRINGE (J1650) SC SCH ×2 (03:51→15:15)
[2019-04-10] MEDS: LEVOTHYROXINE 50MCG TABLET (0.05MG) PO SCH (05:34)
[2019-04-10] MEDS: SODIUM CHLORIDE 0.9% INJ 10 ML SYR IV SCH ×2 (05:35→17:12)
[2019-04-10 06:00] VITALS: BP 143/73
[2019-04-10 06:16] LABS: INR 1.71; PROTHROMBIN TIME 19.8 SECONDS (11.8-14.0)
[2019-04-10] MEDS: VITAMIN D 1,000 INTERNATIONAL UNITS TABLET PO SCH (08:02)
[2019-04-10] MEDS: metFORMIN (GLUCOPHAGE) 1000 MG TABLET PO SCH ×2 (08:02→17:12)
[2019-04-10] MEDS: HumaLOG INSULIN (NovoLOG) PER UNIT SC SCH ×4 (08:03→21:00)
[2019-04-10] MEDS: amLODIPine 5 MG TAB PO SCH (08:04)
[2019-04-10] MEDS: lisinopriL 10 MG TAB PO SCH (08:05)
--- NOTE | 2019-04-10 10:04 | IPNPDOC ---
Subjective Date Seen The patient was seen on 04/10/19. Subjective Chief Complaint/HPI no dyspnea, no cp ENT: Denies: Head Aches Pulmonary: Denies: Dyspnea, Cough Cardiovascular: Denies: Chest Pain, Orthopnea Gastrointestinal: Denies: Nausea, Abdominal Pain Genitourinary: Denies: Dysuria Hematologic: Denies: Bruising, Petecchia, Purpura Neurological: Denies: Weakness Psych: Reports: Mood Normal Objective Physical Examination General Exam: Positive: Alert, Cooperative, No Acute Distress Neck Exam: Positive: Supple; Negative: JVD Chest Exam: Positive: Clear to auscultation, Normal air movement; Negative: Rales, Rhonchi, Wheezing Heart Exam: Positive: Rate Normal (with peroids of tachycardia ) Abdomen Exam: Positive: Soft; Negative: Tenderness Extremity Exam: Positive: Normal pulses; Negative: Edema, Tenderness Psych Exam: Positive: Mental status NL, Mood NL Assessment /Plan Problems (1) DVT (deep venous thrombosis) Status: Acute Response to Treatment: Stable Problem Specific Plan: Consult Specialist Problem Text: 04/11: INR 1.7 will likely be therapeutic tomorrow. Will need lines pulled at discharge. 04/09: transitioned yesterday to Lovenox. will continue until warfarin therapeutic. INR 1.27 today so increase warfarin to 10mg 04/08/19: Remains on Heparin gtt. Coumadin 5 mg was started last evening. INR this morning 1.21. Vascular continues to follow. Of Alteplase to can change to Lovenox to replace Heparin drip. Will increase warfarin to 7.5 to try to accelerate achieving therapeutic effect sooner so we can avoid sending him home with SC Lovenox. 04/07/19: Day 2 s/p thrombolysis and IVC filter placement. Vascular continues to follow and monitor. He remains on Activase and Hep gtt this morning. Per vascular team, the plan is to transition him to Coumadin for permanent anticoagulation therapy to reduce risk of future events. 04/06/19: S/P Thrombolysis and filter placement. Currently on heparin drip and Activase 04/05/19: Dr. Marte consulted and we await further tx recommendations, ? thrombectomy. Currently Lovenox 90 mg subcutaneous every 12 hours. (2) Bilateral pulmonary embolism Status: Acute Response to Treatment: Stable Problem Specific Plan: Consult Specialist Problem Text: 04/08/19: As above under assessment #1 04/07/19: As aboave under assessment #1, O2 sat 96% on RA 04/06/19: As above under assessment #1 04/05/19: On Levonox as discussed above ECHO RESULTS: Sinus tachycardia without intraventricular conduction disturbance. M-mode and two-dimensional echocardiography was performed with pulsed, continuous wave, color flow and tissue Doppler studies. Normal left ventricular size and wall thickness with hyperkinetic wall motion. Normal left atrial size but Doppler assessment of left ventricular (LV) diastolic function was abnormal with at least borderline increased estimated mean left atrial pressure. Normal right heart chamber sizes and motion with Doppler evidence of at least moderate pulmonary hypertension. Inferior vena cava (IVC) size upper limits of normal with reduced respiratory collapse in keeping with elevated central venous pressure. Normal appearing and functioning valvular structures. Normal aortic root size. (3) Hypertension Status: Chronic Response to Treatment: Stable Problem Text: 04/08/19: Pressures remain stable 04/07/19: B/P remains controlled on current antihypertensive regimen 04/06/19: On Lisinopril. Pressures stable 04/05/19: Pressures stable. Lisinopril 10mg on hold d/t SANYA. We will continue to monitor (4) Diabetes mellitus Status: Chronic Response to Treatment: Stable Problem Text: 04/09 will resume usual regimen as outpatient at discharge. Will restart metformin today at his home dose. 04/07/19: Remains on sliding scale coverage 04/06/19: Sliding scale coverage, BG 128 this morning 04/05/19: Last A1C 7.8. Patient on Sliding scale coverage (5) SANYA (acute kidney injury) Status: Resolved Problem Text: 04/05/19: Renal function has returned to baseline Plan/VTE VTE Prophylaxis Ordered?: Yes (Lovenox) Plan Anticipated Discharge: Home VS, I&O, 24H, Fishbone Vital Signs/I&O Vital Signs Date Time Temp Pulse Resp B/P (MAP) Pulse Ox O2 Delivery O2 Flow Rate FiO2 04/10/19 08:04 90 127/67 04/10/19 06:00 97.1 18 96 04/08/19 04:00 2.0 04/04/19 16:31 Room Air I&O- Last 24 Hours up to 6 AM 04/10/19 06:00 Intake Total 1220 ml Output Total 700 ml Balance 520 ml Laboratory Data 24H LABS Laboratory Tests 2 04/09/19 11:34: Bedside Glucose (Misc Panel) 260H 04/09/19 16:35: Bedside Glucose (Misc Panel) 131H 04/09/19 20:25: Bedside Glucose (Misc Panel) 205H 04/10/19 05:40: Prothrombin Time 19.8H, Prothromb Time International Ratio 1.71 04/10/19 05:52: Bedside Glucose (Misc Panel) 165H Microbiology Microbiology 04/04/19 Blood Culture - Final, Complete NO GROWTH AFTER 5 DAYS 04/04/19 Blood Culture - Final, Complete NO GROWTH AFTER 5 DAYS 04/04/19 Respiratory Virus Panel (PCR) ([facility]) - Final, Complete Ko Garner MD Apr 10, 2019 10:04
[2019-04-10 14:00] VITALS: BP 168/75
[2019-04-10] MEDS: WARFARIN SOD 5 MG TAB PO SCH (17:12)
[2019-04-10] MEDS: CARBAMIDE PEROXIDE 6.5% OTIC SOLN 15ML AU SCH (21:55)
[2019-04-10] MEDS: SIMVASTATIN 20 MG TAB PO SCH (21:55)
[2019-04-10 22:00] VITALS: BP 135/79
[2019-04-11] MEDS: ENOXAPARIN 100MG/1ML SYRINGE (J1650) SC SCH (03:48)
[2019-04-11] MEDS: SODIUM CHLORIDE 0.9% INJ 10 ML SYR IV SCH (05:36)
[2019-04-11] MEDS: LEVOTHYROXINE 50MCG TABLET (0.05MG) PO SCH (05:36)
[2019-04-11 06:00] VITALS: BP 129/71
[2019-04-11 06:11] LABS: INR 2.21; PROTHROMBIN TIME 24.3 SECONDS (11.8-14.0)
[2019-04-11] MEDS: VITAMIN D 1,000 INTERNATIONAL UNITS TABLET PO SCH (08:02)
[2019-04-11] MEDS: HumaLOG INSULIN (NovoLOG) PER UNIT SC SCH (08:03)
[2019-04-11] MEDS: metFORMIN (GLUCOPHAGE) 1000 MG TABLET PO SCH (08:03)
[2019-04-11] MEDS: amLODIPine 5 MG TAB PO SCH (08:06)
[2019-04-11 08:07] VITALS: BP 147/93
[2019-04-11] MEDS: lisinopriL 10 MG TAB PO SCH (08:07)
[2019-04-11] MEDS ORDERED: COUM1TAB17 PO (08:46)
[2019-04-11] MEDS ORDERED: AMLO5TAB6 PO (08:46)
--- NOTE | 2019-04-11 09:20 | DSES ---
DATE OF ADMISSION: 04/04/2019 DATE OF DISCHARGE: 04/11/2019 PRIMARY CARE PROVIDER: Yuli Cramer ATTENDING PHYSICIAN: Dr. Art Sethi HISTORY OF PRESENT ILLNESS: This is a 73-year-old gentleman with a past medical history of a prior deep vein thrombosis (DVT) to the right lower extremity which was postoperative in 2001 who presented for shortness of breath and dyspnea on exertion to [facility] emergency department (ED) on 04/04/2019. The patient was noted to have a left lower extremity DVT and vascular surgery was consulted for consideration of a left lower extremity thrombectomy. CT of chest provided positive for pulmonary emboli extending into the first and second order lingular, left lower lobe, right middle lobe and right lower lobe pulmonary arteries and some left lower lobe consolidation was noted. The patient was subsequently admitted to the family medicine service. HOSPITAL COURSE: Hypercoagulable workup was initiated and results continue to pend. The patient was placed on Lovenox 90 mg subcutaneous every 12 hours. The patient is status post pulmonary thrombolysis and IVC filter placement per Dr. Marte on 04/05/2019 with improvement of his symptoms. The patient was placed on an alteplase IV infusion as well as a heparin drip. This was subsequently transitioned over to Lovenox subcutaneous in conjunction with warfarin until INR was therapeutic. Today, INR is at desired level of 2.21 and he anticipates discharge home today. Imaging completed includes CT of chest which proved positive for his pulmonary embolism, chest x-ray and vascular ultrasound of the lower extremity which proved positive for his left lower extremity occlusive thrombus. Head CT was completed and proved positive for mild age related changes, no evidence for acute pathology. Echocardiogram was completed on 04/04/2019. Results proved positive for sinus tachycardia without intraventricular conduction disturbance. The patient's ejection fraction (EF) estimated at 80%. No valvular abnormalities were noted. CONSULTATIONS: Dr. Jermaine Marte, vascular surgery. PHYSICAL EXAMINATION: Today, vital signs are stable. The patient is afebrile. HEENT: Neck is supple. Without lymphadenopathy or jugular venous distention (JVD). Cardiovascular: Heart rate and rhythm are regular. Pulmonary: Lungs are clear. Abdomen: Soft. Nontender. Bilateral Lower Extremities: Without any severe edema. Neurologic: The patient is alert and oriented times three. Psych: Conversation is appropriate. Patient maintains eye contact. ASSESSMENT: 1. Pulmonary emboli. 2. Left lower extremity deep vein thrombosis. 3. Hypertension. 4. Diabetes. 5. Hypothyroidism. 6. Hyperlipidemia. PLAN: Patient will be discharged home today. Diet is a consistent carbohydrate. Activity is as tolerated. He will followup with Yuli Cramer on , 04/14/2019, at 7:45 a.m. for a hospital followup as well as a repeat INR. He will followup with vascular surgery within the next 7-10 days. MEDICATIONS: - amlodipine 5 mg one daily - warfarin sodium 5 mg tablets, 7.5 mg daily until repeat INR - vitamin D3 2000 international units by mouth daily - Glyburide 5 mg daily. - levothyroxine 50 mcg daily - lisinopril 10 mg by mouth daily - metformin 1000 mg by mouth twice a day - omega 3 fatty acid 1000 mg one capsule twice a day - simvastatin 20 mg every p.m. - Januvia 100 mg every p.m. The patient is to stop his daily aspirin as he is continuing on warfarin. The patient is discharged in stable and satisfactory condition with no further questions at the time of discharge. Edited: dianne 04/12/2019 1244 MTDD
--- NOTE | 2019-04-21 14:01 | REPIR ---
DATE OF PROCEDURE: 04/05/2019 ATTENDING SURGEON: Dr. Nahum Marte VALVE TECHNICIAN: Yajaira Mittal and Areli Xavier PREOPERATIVE DIAGNOSIS: Deep vein thrombosis (DVT), pulmonary embolus. POSTOPERATIVE DIAGNOSIS: Deep vein thrombosis (DVT), pulmonary embolus. PROCEDURE: Ultrasound-guided right brachial vein cannulation, inferior vena cava catheter placement with venogram, inferior vena cava filter placement with an optional lead with retrievable filter, placement of a dual-lumen central venous catheter for pulmonary thrombolysis measuring 45 cm. . INDICATION: The patient is a 73-year-old male with DVT and PE with right heart strain who requires pulmonary thrombolysis and placement of an inferior vena cava filter to prevent further pulmonary embolus. ANESTHESIA: Local with 5 mL of 2% lidocaine mixed 0.5% Marcaine. FLUORO TIME: 1.3-minutes. CONTRAST: 5 mL of Isovue-300. TPA: 10 mg. COMPLICATIONS: None. DRAINS: None. SPECIMEN None. IMPLANTS: Inferior vena cava filter with an optional lead retrievable filter. DESCRIPTION OF PROCEDURE: The patient was taken to the angiography suite and placed supine on the angiography room table and then prepped and draped in a standard surgical fashion. The ultrasound was used guide cannulation of the right basilic vein. A catheter was placed into the inferior vena cava and inferior vena cavogram was performed showing the position of the renal veins which were noted. The inferior vena cava filter was placed below the level of the renal veins using fluoroscopic guidance. The sheath for placement of the filter was removed and a 45 cm PICC line was cut, which was dual lumen, for placement with the tip in the superior vena cava/right atrial junction for initiation of pulmonary thrombolysis. Dressings were then applied. The patient tolerated the procedure well. All instrument, sponge and needle counts were correct at the end of the case. There were no complications. Dr. Marte was present for and directed the entire case. The patient was transferred to the ICU for pulmonary thrombolysis.
--- NOTE | 2019-04-29 14:50 | REPIR ---
DATE OF PROCEDURE: 04/05/2019 ATTENDING SURGEON: Dr. Kenny Marte OPERATOR RECEPTIONIST: Areli Xavier and Yajaira Mason PREOPERATIVE DIAGNOSES: Deep vein thrombosis (DVT). Pulmonary embolus. POSTOPERATIVE DIAGNOSES: Deep vein thrombosis (DVT). Pulmonary embolus. PROCEDURE: Ultrasound-guided left brachial vein cannulation, 52 cm left brachial vein peripherally inserted central catheter (PICC) line placement. INDICATION: Patient is a 73-year-old male with DVT and PE who has undergone pulmonary thrombolysis and requires access for blood draws and instillation of medications. The patient will undergo a left arm PICC line. ANESTHESIA: Local with 5 mL of 2% lidocaine mixed with 0.5% Marcaine. COMPLICATIONS: None. DRAINS: None. SPECIMEN: None. IMPLANTS: None. PROCEDURE: Patient was on the angiography table after undergoing filter placement and pulmonary thrombolysis. The left upper extremity was prepped and draped in the standard surgical fashion. The ultrasound was used to guide cannulation of the left brachial vein with a 52 cm PICC line inserted with the tip in the superior vena cava right atrial junction. Final fluoroscopic image showed no pneumo or hemothorax with the tip positioned in the superior vena cava right atrial junction with good positioning of the left brachial vein PICC line.
== END 2019-04-11 10:45 | disposition home or self-care (01) | DRG 252 ==
LOC: M ED 09:02 → M ED INP 12:42 → M PCU 16:53 → M ICU 04-05 14:24 → M MSPAV 04-08 13:14
PROVIDERS: ADMIT General Practice; ATTEND Family Medicine
PROC: B5191ZA Fluoroscopy of Inferior Vena Cava using Low Osmolar Contrast, Guidance (ICD-10-PCS; 2019-04-05)
PROC: 02H633Z Insertion of Infusion Device into Right Atrium, Percutaneous Approach (ICD-10-PCS; 2019-04-05)
PROC: B2141ZZ Fluoroscopy of Right Heart using Low Osmolar Contrast (ICD-10-PCS; 2019-04-05)
PROC: 06H03DZ Insertion of Intraluminal Device into Inferior Vena Cava, Percutaneous Approach (ICD-10-PCS; principal; 2019-04-05 15:30)
DX: I82.433 Acute embolism and thrombosis of popliteal vein, bilateral (principal); I26.99 Other pulmonary embolism without acute cor pulmonale; N17.9 Acute kidney failure, unspecified; I82.412 Acute embolism and thrombosis of left femoral vein; I82.890 Acute embolism and thrombosis of other specified veins; I10 Essential (primary) hypertension; E11.9 Type 2 diabetes mellitus without complications; E03.9 Hypothyroidism, unspecified; Z79.899 Other long term (current) drug therapy; E55.9 Vitamin D deficiency, unspecified; Z85.828 Personal history of other malignant neoplasm of skin; E78.5 Hyperlipidemia, unspecified; Z87.891 Personal history of nicotine dependence

== ENCOUNTER → 2019-07-08 | Outpatient (CLI) | payer MEDICARE ==
[~2019-07-08] MED LIST changes: +AMLO5TAB6 PO; +ASPI81TA33 PO; +COUM1TAB17 PO; +D32000CA PO; +FISH1000 PO; +GLYB5TA PO; +LISI10TA4 PO; +SIMV20TA2 PO; -SIMV20TA22 PO
--- NOTE | 2019-07-08 12:44 | REP ---
Bilateral lower extremity duplex venous ultrasound with reflux evaluation: History: History of pulmonary embolism.. 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 Otherwise, the deep veins are anechoic and fully compressible from the groin to the popliteal fossa in both lower extremities on two-dimensional scanning. Color flow and spectral Doppler interrogation are unremarkable. No other evidence of DVT. Reflux evaluation. In the right lower extremity, reflux greater than 0.5 seconds in duration was observed in the common femoral vein with minimal reflux in the proximal greater saphenous vein. Right greater saphenous vein measures 0.8 cm in AP dimension proximally, 0.4 cm at mid greater saphenous vein level, and 0.5 cm in the knee. No other right lower extremity reflux is observed. The lesser saphenous vein diameter is 0.27 cm. In the left lower extremity, mild reflux is seen in the deep system with the bed tipped in the common femoral vein, the proximal mid and distal femoral vein. Superficial system reflux greater than 0.5 seconds in duration was observed at the greater saphenous vein and in the lesser saphenous vein. The greater saphenous vein measures 6.6 mm in AP dimension proximally at the saphenofemoral junction and there is 3.3-second duration reflux here. The greater saphenous vein measured 3.7 mm in AP dimension at the mid thigh where it shows 3.2-second duration reflux. At the knee the greater saphenous vein diameter is 3.6 mm in duration reflux is 3.5 seconds. The lesser saphenous vein measures at 3.3 mm and showed 0.9 seconds of reflux. Impression: Bilateral deep and superficial system reflux, left greater than right. Nonocclusive DVT is visible in the popliteal veins bilaterally, probably chronic or subacute. Electronically Signed by Montrell Villalobos MD 07/08/2019 12:59 P
== END ==
LOC: M RAD 09:58
PROVIDERS: ATTEND Physician Assistant
DX: I82.403 Acute embolism and thrombosis of unspecified deep veins of lower extremity, bilateral (principal)

== ENCOUNTER → 2019-08-17 | Outpatient (REF) | payer MEDICARE ==
[~2019-08-17] MED LIST changes: -SIMV20TA2 PO; +SIMV20TA22 PO
[2019-08-17 12:43] LABS: BASO # 0.1 10^3/uL (0.0-0.2); BASO % 0.7 % (0.0-1.0); EOS # 0.3 10^3/uL (0.0-0.5); HEMATOCRIT 47.2 % (42.0-52.0); HEMOGLOBIN 15.7 g/dl (13.5-17.5); LYMPH # 2.5 10^3/uL (1.5-5.0); LYMPH % 36.8 % (24.0-44.0); MEAN CORPUSCULAR HEMOGLOBIN 30.2 pg (27.0-33.0); MEAN CORPUSCULAR HGB CONC 33.3 g/dl (32.0-36.5); MEAN CORPUSCULAR VOLUME 90.8 fl (80.0-96.0); MONO # 0.7 10^3/uL (0.0-0.8); NEUTROPHILS # 3.2 10^3/uL (1.5-8.5); NEUTROPHILS % 47.1 % (36.0-66.0); PLATELET COUNT, AUTOMATED 210 10^3/uL (150-450); WHITE BLOOD COUNT 6.8 10^3/uL (4.0-10.0)
[2019-08-17 13:10] LABS: HEMOGLOBIN A1c 8.2 %
[2019-08-17 13:47] LABS: ALBUMIN 3.7 GM/DL (3.2-5.2); ALT/SGPT 26 U/L (12-78); BILIRUBIN,TOTAL 0.5 MG/DL (0.2-1.0); BLOOD UREA NITROGEN 15 MG/DL (7-18); CARBON DIOXIDE LEVEL 23 MEQ/L (21-32); CHLORIDE LEVEL 107 MEQ/L (98-107); CHOLESTEROL LEVEL 136 MG/DL (<200); CHOLESTEROL RISK RATIO 2.518 (<5); CREATININE FOR GFR 1.14 MG/DL (0.70-1.30); GLOMERULAR FILTRATION RATE > 60.0 (>42); GLUCOSE, FASTING 164 MG/DL (70-100); HDL CHOLESTEROL 54 MG/DL (>40); LDL CHOLESTEROL 41 MG/DL (<100); MAU/CREAT RATIO 14.8 MCG/MG (0.0-30.0); NON-HDL-C 82 MG/DL; POTASSIUM SERUM 4.3 MEQ/L (3.5-5.1); SODIUM LEVEL 138 MEQ/L (136-145); TOTAL PROTEIN 7.2 GM/DL (6.4-8.2); TRIGLYCERIDES LEVEL 207 MG/DL (<150)
== END ==
LOC: M SFHCADAM 08:07
PROVIDERS: ATTEND Physician Assistant Medical
DX: E11.9 Type 2 diabetes mellitus without complications (principal); E55.9 Vitamin D deficiency, unspecified; E03.9 Hypothyroidism, unspecified; E78.2 Mixed hyperlipidemia

== ENCOUNTER → 2020-02-01 | Outpatient (REF) | payer MEDICARE ==
[2020-02-01 13:05] LABS: ALBUMIN 3.5 GM/DL (3.2-5.2); ALT/SGPT 31 U/L (12-78); BILIRUBIN,TOTAL 0.8 MG/DL (0.2-1.0); BLOOD UREA NITROGEN 15 MG/DL (7-18); CALCIUM LEVEL 8.8 MG/DL (8.8-10.2); CARBON DIOXIDE LEVEL 23 MEQ/L (21-32); CHLORIDE LEVEL 109 MEQ/L (98-107); CHOLESTEROL LEVEL 123 MG/DL (<200); CREATININE FOR GFR 1.15 MG/DL (0.70-1.30); GLOMERULAR FILTRATION RATE > 60.0 (>42); GLUCOSE, FASTING 163 MG/DL (70-100); HDL CHOLESTEROL 41 MG/DL (>40); LDL CHOLESTEROL 44 MG/DL (<100); NON-HDL-C 82 MG/DL; POTASSIUM SERUM 4.3 MEQ/L (3.5-5.1); SODIUM LEVEL 138 MEQ/L (136-145); TOTAL 25(OH) VITAMIN D 42.6 NG/ML (30.0-100.0); TOTAL PROTEIN 7.1 GM/DL (6.4-8.2); TRIGLYCERIDES LEVEL 191 MG/DL (<150)
[2020-02-01 13:26] LABS: HEMOGLOBIN A1c 8.6 %
== END ==
LOC: M SFHCADAM 08:24
PROVIDERS: ATTEND Physician Assistant Medical
DX: E55.9 Vitamin D deficiency, unspecified (principal); E11.9 Type 2 diabetes mellitus without complications; E03.9 Hypothyroidism, unspecified; I10 Essential (primary) hypertension; E78.2 Mixed hyperlipidemia

== ENCOUNTER → 2020-08-08 | Outpatient (REF) | payer MEDICARE ==
[~2020-08-08] MED LIST changes: +AMLO1TAB24 PO; -AMLO5TAB6 PO
[2020-08-08 13:27] LABS: BASO # 0.1 10^3/uL (0.0-0.2); BASO % 0.8 % (0.0-1.0); EOS # 0.5 10^3/uL (0.0-0.5); EOS % 6.4 % (0.0-3.0); HEMATOCRIT 46.9 % (42.0-52.0); HEMOGLOBIN 15.2 g/dl (13.5-17.5); LYMPH # 2.4 10^3/uL (1.5-5.0); LYMPH % 33.8 % (24.0-44.0); MEAN CORPUSCULAR HEMOGLOBIN 29.6 pg (27.0-33.0); MEAN CORPUSCULAR HGB CONC 32.4 g/dl (32.0-36.5); MEAN CORPUSCULAR VOLUME 91.4 fl (80.0-96.0); MONO # 0.9 10^3/uL (0.0-0.8); MONO % 12.1 % (0.0-5.0); NEUTROPHILS # 3.3 10^3/uL (1.5-8.5); NEUTROPHILS % 46.5 % (36.0-66.0); PLATELET COUNT, AUTOMATED 230 10^3/uL (150-450); RED BLOOD COUNT 5.13 10^6/uL (4.30-6.10); WHITE BLOOD COUNT 7.2 10^3/uL (4.0-10.0)
[2020-08-08 13:49] LABS: HEMOGLOBIN A1c 8.1 %
[2020-08-08 13:56] LABS: ALBUMIN 3.6 GM/DL (3.2-5.2); BILIRUBIN,TOTAL 0.4 MG/DL (0.2-1.0); CALCIUM LEVEL 8.8 MG/DL (8.8-10.2); CHOLESTEROL RISK RATIO 3.068 (<5); CREATININE FOR GFR 1.28 MG/DL (0.70-1.30); FREE T4 1.08 NG/DL (0.76-1.46); GLOMERULAR FILTRATION RATE 58.5 (>42); POTASSIUM SERUM 4.8 MEQ/L (3.5-5.1); THYROID STIMULATING HORMONE 4.09 uIU/ML (0.358-3.740)
[2020-08-08 13:59] LABS: MALB URINE SIEMENS 35.4 MG/L; MAU/CREAT RATIO 19.3 MCG/MG (0.0-30.0); TOTAL 25(OH) VITAMIN D 64.5 NG/ML (30.0-100.0)
== END ==
LOC: M SFHCADAM 08:06
PROVIDERS: ATTEND Physician Assistant Medical
DX: E11.9 Type 2 diabetes mellitus without complications (principal); E55.9 Vitamin D deficiency, unspecified; E03.9 Hypothyroidism, unspecified; I10 Essential (primary) hypertension; E78.2 Mixed hyperlipidemia

== ENCOUNTER → 2021-01-31 | Outpatient (REF) | payer MEDICARE ==
[~2021-01-31] MED LIST changes: +GLYB2.5T7; -GLYB25TA; -GLYB5TA PO; +GLYB5TAB6 PO; +LISI10TA22 PO; -LISI10TA4 PO
[2021-01-31 12:54] LABS: BASO # 0.1 10^3/uL (0.0-0.2); BASO % 0.8 % (0.0-1.0); EOS # 0.3 10^3/uL (0.0-0.5); EOS % 3.6 % (0.0-3.0); HEMATOCRIT 46.4 % (42.0-52.0); HEMOGLOBIN 15.6 g/dl (13.5-17.5); LYMPH # 2.7 10^3/uL (1.5-5.0); LYMPH % 32.3 % (24.0-44.0); MEAN CORPUSCULAR HEMOGLOBIN 30.9 pg (27.0-33.0); MEAN CORPUSCULAR HGB CONC 33.6 g/dl (32.0-36.5); MEAN CORPUSCULAR VOLUME 91.9 fl (80.0-96.0); MONO # 0.8 10^3/uL (0.0-0.8); MONO % 9.6 % (2.0-8.0); NEUTROPHILS # 4.4 10^3/uL (1.5-8.5); NEUTROPHILS % 53.2 % (36.0-66.0); PLATELET COUNT, AUTOMATED 206 10^3/uL (150-450); RED BLOOD COUNT 5.05 10^6/uL (4.30-6.10); WHITE BLOOD COUNT 8.2 10^3/uL (4.0-10.0)
[2021-01-31 13:10] LABS: HEMOGLOBIN A1c 8.2 %
[2021-01-31 13:36] LABS: ALBUMIN 3.6 GM/DL (3.2-5.2); ALT/SGPT 30 U/L (12-78); BILIRUBIN,TOTAL 0.5 MG/DL (0.2-1.0); BLOOD UREA NITROGEN 14 MG/DL (7-18); CALCIUM LEVEL 9.2 MG/DL (8.8-10.2); CARBON DIOXIDE LEVEL 24 MEQ/L (21-32); CHLORIDE LEVEL 108 MEQ/L (98-107); CHOLESTEROL LEVEL 131 MG/DL (<200); CHOLESTEROL RISK RATIO 3.119 (<5); CREATININE FOR GFR 1.08 MG/DL (0.70-1.30); GLOMERULAR FILTRATION RATE > 60.0 (>42); GLUCOSE, FASTING 156 MG/DL (70-100); HDL CHOLESTEROL 42 MG/DL (>40); LDL CHOLESTEROL 34 MG/DL (<100); NON-HDL-C 89 MG/DL; POTASSIUM SERUM 4.9 MEQ/L (3.5-5.1); SODIUM LEVEL 140 MEQ/L (136-145); TOTAL 25(OH) VITAMIN D 43.8 NG/ML (30.0-100.0); TRIGLYCERIDES LEVEL 276 MG/DL (<150)
== END ==
LOC: M SFHCADAM 08:09
PROVIDERS: ATTEND Physician Assistant Medical
DX: E11.9 Type 2 diabetes mellitus without complications (principal); E03.9 Hypothyroidism, unspecified; I10 Essential (primary) hypertension; E78.2 Mixed hyperlipidemia; E55.9 Vitamin D deficiency, unspecified; Z79.01 Long term (current) use of anticoagulants

== ENCOUNTER → 2021-05-02 | Outpatient (REF) | payer OTHER ==
[2021-05-02 13:45] LABS: INR 2.48; PROTHROMBIN TIME 27.2 SECONDS (12.7-14.5)
== END ==
LOC: M SFHCADAM 09:51
PROVIDERS: ATTEND Family Medicine
DX: Z86.718 Personal history of other venous thrombosis and embolism (principal)

== ENCOUNTER → 2021-08-08 | Outpatient (REF) | payer OTHER ==
[2021-08-08 13:06] LABS: BASO # 0.1 10^3/uL (0.0-0.2); BASO % 0.8 % (0.0-1.0); EOS # 0.3 10^3/uL (0.0-0.5); EOS % 3.6 % (0.0-3.0); HEMATOCRIT 46.8 % (42.0-52.0); HEMOGLOBIN 15.8 g/dl (13.5-17.5); LYMPH # 2.4 10^3/uL (1.5-5.0); LYMPH % 32.9 % (24.0-44.0); MEAN CORPUSCULAR HEMOGLOBIN 30.9 pg (27.0-33.0); MEAN CORPUSCULAR HGB CONC 33.8 g/dl (32.0-36.5); MEAN CORPUSCULAR VOLUME 91.4 fl (80.0-96.0); MONO # 0.7 10^3/uL (0.0-0.8); MONO % 9.8 % (2.0-8.0); NEUTROPHILS # 3.8 10^3/uL (1.5-8.5); NEUTROPHILS % 52.2 % (36.0-66.0); PLATELET COUNT, AUTOMATED 203 10^3/uL (150-450); RED BLOOD COUNT 5.12 10^6/uL (4.30-6.10); WHITE BLOOD COUNT 7.3 10^3/uL (4.0-10.0)
[2021-08-08 13:37] LABS: MALB URINE SIEMENS 15.7 MG/L; MAU/CREAT RATIO 11.2 MCG/MG (0.0-30.0)
[2021-08-08 13:41] LABS: ALBUMIN 3.4 GM/DL (3.2-5.2); ALT/SGPT 29 U/L (12-78); BILIRUBIN,TOTAL 0.4 MG/DL (0.2-1.0); BLOOD UREA NITROGEN 20 MG/DL (7-18); CALCIUM LEVEL 9.4 MG/DL (8.8-10.2); CARBON DIOXIDE LEVEL 24 MEQ/L (21-32); CHLORIDE LEVEL 107 MEQ/L (98-107); CREATININE FOR GFR 1.17 MG/DL (0.70-1.30); GLOMERULAR FILTRATION RATE > 60.0 (>42); GLUCOSE, FASTING 173 MG/DL (70-100); POTASSIUM SERUM 4.6 MEQ/L (3.5-5.1); SODIUM LEVEL 138 MEQ/L (136-145); TOTAL 25(OH) VITAMIN D 50.5 NG/ML (30.0-100.0); TOTAL PROTEIN 6.8 GM/DL (6.4-8.2)
== END ==
LOC: M SFHCADAM 09:00
PROVIDERS: ATTEND Physician Assistant Medical
DX: E55.9 Vitamin D deficiency, unspecified (principal); E11.9 Type 2 diabetes mellitus without complications; E03.9 Hypothyroidism, unspecified; I10 Essential (primary) hypertension; E78.2 Mixed hyperlipidemia; Z79.899 Other long term (current) drug therapy

== ENCOUNTER → 2021-11-05 | Outpatient (REF) | payer OTHER ==
[2021-11-05 13:52] LABS: ALBUMIN 3.6 GM/DL (3.2-5.2); ALT/SGPT 38 U/L (12-78); BILIRUBIN,TOTAL 0.4 MG/DL (0.2-1.0); BLOOD UREA NITROGEN 19 MG/DL (7-18); CALCIUM LEVEL 9.4 MG/DL (8.8-10.2); CARBON DIOXIDE LEVEL 25 MEQ/L (21-32); CHLORIDE LEVEL 110 MEQ/L (98-107); CREATININE FOR GFR 1.19 MG/DL (0.70-1.30); GLOMERULAR FILTRATION RATE > 60.0 (>42); GLUCOSE, FASTING 166 MG/DL (70-100); POTASSIUM SERUM 4.7 MEQ/L (3.5-5.1); SODIUM LEVEL 141 MEQ/L (136-145); TOTAL PROTEIN 6.9 GM/DL (6.4-8.2)
[2021-11-05 15:10] LABS: HEMOGLOBIN A1c 7.7 %
== END ==
LOC: M SFHCADAM 08:17
PROVIDERS: ATTEND Physician Assistant Medical
DX: E11.9 Type 2 diabetes mellitus without complications (principal)

== ENCOUNTER → 2022-02-10 | Outpatient (REF) | payer OTHER ==
[2022-02-10 13:38] LABS: BASO # 0.1 10^3/uL (0.0-0.2); BASO % 0.9 % (0.0-1.0); EOS # 0.3 10^3/uL (0.0-0.5); EOS % 3.4 % (0.0-3.0); HEMATOCRIT 47.4 % (42.0-52.0); HEMOGLOBIN 16.1 g/dl (13.5-17.5); LYMPH # 2.5 10^3/uL (1.5-5.0); MEAN CORPUSCULAR VOLUME 91.3 fl (80.0-96.0); MONO # 0.8 10^3/uL (0.0-0.8); MONO % 9.4 % (2.0-8.0); NEUTROPHILS # 4.6 10^3/uL (1.5-8.5); NEUTROPHILS % 55.9 % (36.0-66.0); PLATELET COUNT, AUTOMATED 183 10^3/uL (150-450); RED BLOOD COUNT 5.19 10^6/uL (4.30-6.10); WHITE BLOOD COUNT 8.2 10^3/uL (4.0-10.0)
[2022-02-10 14:18] LABS: ALBUMIN 3.5 GM/DL (3.2-5.2); BILIRUBIN,TOTAL 0.5 MG/DL (0.2-1.0); CALCIUM LEVEL 8.6 MG/DL (8.8-10.2); CHOLESTEROL RISK RATIO 2.63 (<5); CREATININE FOR GFR 1.28 MG/DL (0.70-1.30); GLOMERULAR FILTRATION RATE 58.2 (>42); POTASSIUM SERUM 4.4 MEQ/L (3.5-5.1); THYROID STIMULATING HORMONE 3.27 uIU/ML (0.358-3.740); TOTAL 25(OH) VITAMIN D 58.7 NG/ML (30.0-100.0); TOTAL PROTEIN 6.5 GM/DL (6.4-8.2)
[2022-02-10 15:29] LABS: HEMOGLOBIN A1c 6.9 %
== END ==
LOC: M SFHCADAM 07:49
PROVIDERS: ATTEND Physician Assistant Medical
DX: E55.9 Vitamin D deficiency, unspecified (principal); E11.9 Type 2 diabetes mellitus without complications; E03.9 Hypothyroidism, unspecified; E78.2 Mixed hyperlipidemia

== ENCOUNTER → 2022-08-13 | Outpatient (REF) | payer OTHER ==
[2022-08-13 14:07] LABS: BASO # 0.1 10^3/uL (0.0-0.2); BASO % 0.7 % (0.0-1.0); EOS # 0.3 10^3/uL (0.0-0.5); EOS % 3.8 % (0.0-3.0); HEMATOCRIT 44.8 % (42.0-52.0); HEMOGLOBIN 14.8 g/dl (13.5-17.5); LYMPH # 2.7 10^3/uL (1.5-5.0); LYMPH % 30.5 % (24.0-44.0); MEAN CORPUSCULAR HEMOGLOBIN 30.8 pg (27.0-33.0); MEAN CORPUSCULAR VOLUME 93.3 fl (80.0-96.0); MONO # 0.8 10^3/uL (0.0-0.8); MONO % 9.6 % (2.0-8.0); NEUTROPHILS # 4.8 10^3/uL (1.5-8.5); NEUTROPHILS % 54.9 % (36.0-66.0); PLATELET COUNT, AUTOMATED 219 10^3/uL (150-450); WHITE BLOOD COUNT 8.8 10^3/uL (4.0-10.0)
[2022-08-13 14:41] LABS: ALBUMIN 3.7 G/DL (3.2-5.2); ALKALINE PHOSPHATASE 64 U/L (46-116); ALT/SGPT 21 U/L (7.0-40); AST/SGOT 18 U/L (<34); BILIRUBIN,TOTAL 0.6 MG/DL (0.3-1.2); BLOOD UREA NITROGEN 22 MG/DL (9-23); CALCIUM LEVEL 9.3 MG/DL (8.3-10.6); CARBON DIOXIDE LEVEL 22 MMOL/L (20-31); CHLORIDE LEVEL 106 MMOL/L (98-107); CHOLESTEROL LEVEL 116 MG/DL (<200); CHOLESTEROL RISK RATIO 2.63 (<5); CREATININE FOR GFR 1.21 MG/DL (0.70-1.30); GLOMERULAR FILTRATION RATE > 60.0 (>42); GLUCOSE, FASTING 151 MG/DL (74-106); HDL CHOLESTEROL 44.1 MG/DL (>40); LDL CHOLESTEROL 37.7 MG/DL (<100); NON-HDL-C 72 MG/DL; POTASSIUM SERUM 4.4 MMOL/L (3.5-5.1); SODIUM LEVEL 139 MMOL/L (136-145); THYROID STIMULATING HORMONE 4.046 uIU/ML (0.55-4.78); TOTAL 25(OH) VITAMIN D 63.1 NG/ML (20.0-100.0); TOTAL PROTEIN 6.8 G/DL (5.7-8.2); TRIGLYCERIDES LEVEL 171 MG/DL (<150)
== END ==
LOC: M SFHCADAM 08:06
PROVIDERS: ATTEND Physician Assistant Medical
DX: E11.9 Type 2 diabetes mellitus without complications (principal); E55.9 Vitamin D deficiency, unspecified; E03.9 Hypothyroidism, unspecified; Z79.899 Other long term (current) drug therapy

== ENCOUNTER → 2022-12-11 | Outpatient (REF) | payer OTHER | LOC: M SFHCDERM 12:40 | PROVIDERS: ATTEND Dermatology | DX: C44.311 Basal cell carcinoma of skin of nose (principal) ==

== ENCOUNTER → 2022-12-18 | Outpatient (REF) | payer OTHER | LOC: M SFHCDERM 12:32 | PROVIDERS: ATTEND Dermatology | DX: Z51.89 Encounter for other specified aftercare (principal) ==

== ENCOUNTER → 2023-02-25 | Outpatient (REF) | payer OTHER ==
[2023-02-25 14:12] LABS: BASO # 0.1 10^3/uL (0.0-0.2); BASO % 0.6 % (0.0-1.0); EOS # 0.2 10^3/uL (0.0-0.5); EOS % 2.8 % (0.0-3.0); HEMATOCRIT 42.9 % (42.0-52.0); HEMOGLOBIN 14.8 g/dl (13.5-17.5); LYMPH # 2.3 10^3/uL (1.5-5.0); LYMPH % 29.1 % (24.0-44.0); MEAN CORPUSCULAR HEMOGLOBIN 31.7 pg (27.0-33.0); MEAN CORPUSCULAR HGB CONC 34.5 g/dl (32.0-36.5); MEAN CORPUSCULAR VOLUME 91.9 fl (80.0-96.0); MONO # 0.8 10^3/uL (0.0-0.8); MONO % 10.7 % (2.0-8.0); NEUTROPHILS # 4.4 10^3/uL (1.5-8.5); NEUTROPHILS % 56.4 % (36.0-66.0); PLATELET COUNT, AUTOMATED 206 10^3/uL (150-450); RED BLOOD COUNT 4.67 10^6/uL (4.30-6.10); WHITE BLOOD COUNT 7.7 10^3/uL (4.0-10.0)
[2023-02-25 14:40] LABS: CREATININE, URINE 107.6 MG/DL; MAU/CREAT RATIO 10.2 MCG/MG (0.0-30.0)
[2023-02-25 14:41] LABS: ALBUMIN 3.9 G/DL (3.2-5.2); ALKALINE PHOSPHATASE 70 U/L (46-116); ALT/SGPT 22 U/L (7.0-40); AST/SGOT 15 U/L (<34); BILIRUBIN,TOTAL 0.7 MG/DL (0.3-1.2); BLOOD UREA NITROGEN 16 MG/DL (9-23); CALCIUM LEVEL 9.9 MG/DL (8.3-10.6); CARBON DIOXIDE LEVEL 22 MMOL/L (20-31); CHLORIDE LEVEL 103 MMOL/L (98-107); CHOLESTEROL LEVEL 121 MG/DL (<200); CHOLESTEROL RISK RATIO 2.75 (<5); CREATININE FOR GFR 1.09 MG/DL (0.70-1.30); GLOMERULAR FILTRATION RATE > 60.0 (>42); GLUCOSE, FASTING 200 MG/DL (74-106); LDL CHOLESTEROL 35.4 MG/DL (<100); POTASSIUM SERUM 4.3 MMOL/L (3.5-5.1); SODIUM LEVEL 134 MMOL/L (136-145); TOTAL PROTEIN 6.9 G/DL (5.7-8.2); TRIGLYCERIDES LEVEL 208 MG/DL (<150)
[2023-02-25 14:43] LABS: THYROID STIMULATING HORMONE 3.087 uIU/ML (0.55-4.78)
[2023-02-25 14:44] LABS: FREE T4 1.13 NG/DL (0.89-1.76)
[2023-02-25 15:43] LABS: HEMOGLOBIN A1c 8.1 % (4.0-6.0)
== END ==
LOC: M SFHCADAM 09:58
PROVIDERS: ATTEND Physician Assistant Medical
DX: E11.9 Type 2 diabetes mellitus without complications (principal); E55.9 Vitamin D deficiency, unspecified; E03.9 Hypothyroidism, unspecified; E78.2 Mixed hyperlipidemia; Z79.899 Other long term (current) drug therapy

== ENCOUNTER → 2023-05-01 | Outpatient (CLI) | payer OTHER | LOC: M CARPUL 09:21 | PROVIDERS: ATTEND Physician Assistant Medical | DX: I34.81 Nonrheumatic mitral (valve) annulus calcification (principal); R60.1 Generalized edema ==

== ENCOUNTER → 2023-08-12 | Outpatient (REF) | payer OTHER ==
[2023-08-12 13:25] LABS: ALBUMIN 3.5 G/DL (3.2-5.2); ALKALINE PHOSPHATASE 71 U/L (46-116); ALT/SGPT 20 U/L (7.0-40); AST/SGOT 19 U/L (<34); BILIRUBIN,TOTAL 0.3 MG/DL (0.3-1.2); BLOOD UREA NITROGEN 17 MG/DL (9-23); CALCIUM LEVEL 9.2 MG/DL (8.3-10.6); CARBON DIOXIDE LEVEL 26 MMOL/L (20-31); CHLORIDE LEVEL 106 MMOL/L (98-107); CHOLESTEROL LEVEL 128 MG/DL (<200); CHOLESTEROL RISK RATIO 2.71 (<5); CREATININE FOR GFR 1.06 MG/DL (0.70-1.30); GLOMERULAR FILTRATION RATE > 60.0 (>42); GLUCOSE, FASTING 132 MG/DL (74-106); HDL CHOLESTEROL 47.1 MG/DL (>40); LDL CHOLESTEROL 50.7 MG/DL (<100); NON-HDL-C 80.9 MG/DL; POTASSIUM SERUM 4.5 MMOL/L (3.5-5.1); SODIUM LEVEL 141 MMOL/L (136-145); TOTAL PROTEIN 6.7 G/DL (5.7-8.2); TRIGLYCERIDES LEVEL 151 MG/DL (<150)
[2023-08-12 14:09] LABS: BASO # 0.1 10^3/uL (0.0-0.2); BASO % 0.9 % (0.0-1.0); EOS # 0.7 10^3/uL (0.0-0.5); EOS % 8.3 % (0.0-3.0); HEMATOCRIT 44.8 % (42.0-52.0); HEMOGLOBIN 14.7 g/dl (13.5-17.5); LYMPH # 2.3 10^3/uL (1.5-5.0); LYMPH % 29.8 % (24.0-44.0); MEAN CORPUSCULAR HEMOGLOBIN 30.7 pg (27.0-33.0); MEAN CORPUSCULAR HGB CONC 32.8 g/dl (32.0-36.5); MEAN CORPUSCULAR VOLUME 93.5 fl (80.0-96.0); MONO % 12.2 % (2.0-8.0); NEUTROPHILS # 3.8 10^3/uL (1.5-8.5); NEUTROPHILS % 48.5 % (36.0-66.0); PLATELET COUNT, AUTOMATED 211 10^3/uL (150-450); RED BLOOD COUNT 4.79 10^6/uL (4.30-6.10); WHITE BLOOD COUNT 7.8 10^3/uL (4.0-10.0)
[2023-08-12 14:31] LABS: HEMOGLOBIN A1c 6.8 % (4.0-6.0)
== END ==
LOC: M SFHCADAM 08:46
PROVIDERS: ATTEND Physician Assistant Medical
DX: E11.9 Type 2 diabetes mellitus without complications (principal); E03.9 Hypothyroidism, unspecified; I10 Essential (primary) hypertension; E55.9 Vitamin D deficiency, unspecified

== ENCOUNTER → 2024-02-18 | Outpatient (REF) | payer OTHER ==
[2024-02-18 14:03] LABS: BASO # 0.1 10^3/uL (0.0-0.2); EOS # 0.3 10^3/uL (0.0-0.5); EOS % 4.2 % (0.0-3.0); HEMATOCRIT 45.1 % (42.0-52.0); LYMPH # 2.6 10^3/uL (1.5-5.0); LYMPH % 35.6 % (24.0-44.0); MEAN CORPUSCULAR HEMOGLOBIN 30.7 pg (27.0-33.0); MEAN CORPUSCULAR HGB CONC 33.3 g/dl (32.0-36.5); MEAN CORPUSCULAR VOLUME 92.2 fl (80.0-96.0); MONO # 0.9 10^3/uL (0.0-0.8); MONO % 11.9 % (2.0-8.0); NEUTROPHILS # 3.4 10^3/uL (1.5-8.5); NEUTROPHILS % 46.9 % (36.0-66.0); PLATELET COUNT, AUTOMATED 193 10^3/uL (150-450); RED BLOOD COUNT 4.89 10^6/uL (4.30-6.10); WHITE BLOOD COUNT 7.3 10^3/uL (4.0-10.0)
[2024-02-18 14:13] LABS: HEMOGLOBIN A1c 9.7 % (4.0-6.0)
[2024-02-18 14:22] LABS: ALBUMIN 3.6 G/DL (3.2-5.2); ALKALINE PHOSPHATASE 81 U/L (46-116); ALT/SGPT 21 U/L (7.0-40); AST/SGOT 13 U/L (<34); BILIRUBIN,TOTAL 0.5 MG/DL (0.3-1.2); BLOOD UREA NITROGEN 20 MG/DL (9-23); CALCIUM LEVEL 9.5 MG/DL (8.3-10.6); CARBON DIOXIDE LEVEL 25 MMOL/L (20-31); CHLORIDE LEVEL 106 MMOL/L (98-107); CHOLESTEROL LEVEL 130 MG/DL (<200); CHOLESTEROL RISK RATIO 3.04 (<5); CREATININE FOR GFR 1.23 MG/DL (0.70-1.30); GLOMERULAR FILTRATION RATE > 60.0 (>42); GLUCOSE, FASTING 213 MG/DL (74-106); HDL CHOLESTEROL 42.7 MG/DL (>40); LDL CHOLESTEROL 43.9 MG/DL (<100); NON-HDL-C 87.3 MG/DL; POTASSIUM SERUM 4.7 MMOL/L (3.5-5.1); SODIUM LEVEL 139 MMOL/L (136-145); TOTAL PROTEIN 6.6 G/DL (5.7-8.2); TRIGLYCERIDES LEVEL 217 MG/DL (<150)
[2024-02-18 14:23] LABS: THYROID STIMULATING HORMONE 4.148 uIU/ML (0.55-4.78)
[2024-02-18 14:24] LABS: TOTAL 25(OH) VITAMIN D 72.3 NG/ML (20.0-100.0)
== END ==
LOC: M SFHCADAM 07:45
PROVIDERS: ATTEND Physician Assistant Medical
DX: E11.9 Type 2 diabetes mellitus without complications (principal); E55.9 Vitamin D deficiency, unspecified; E03.9 Hypothyroidism, unspecified; I10 Essential (primary) hypertension

== ENCOUNTER → 2024-05-24 | Outpatient (REF) | payer OTHER ==
[2024-05-24 16:37] LABS: HEMOGLOBIN A1c 7.9 % (4.0-6.0)
== END ==
LOC: M SFHCADAM 07:39
PROVIDERS: ATTEND Physician Assistant Medical
DX: E11.65 Type 2 diabetes mellitus with hyperglycemia (principal)

== ENCOUNTER → 2024-11-24 | Outpatient (REF) | payer MEDICARE ==
[2024-11-24 14:20] LABS: BASO # 0.1 10^3/uL (0.0-0.2); BASO % 0.9 % (0.0-1.0); EOS # 0.3 10^3/uL (0.0-0.5); EOS % 3.7 % (0.0-3.0); HEMOGLOBIN 16.4 g/dl (13.5-17.5); LYMPH # 2.4 10^3/uL (1.5-5.0); LYMPH % 34.1 % (24.0-44.0); MEAN CORPUSCULAR HEMOGLOBIN 31.5 pg (27.0-33.0); MEAN CORPUSCULAR HGB CONC 34.2 g/dl (32.0-36.5); MEAN CORPUSCULAR VOLUME 92.1 fl (80.0-96.0); MONO # 0.8 10^3/uL (0.0-0.8); MONO % 11.3 % (2.0-8.0); NEUTROPHILS # 3.5 10^3/uL (1.5-8.5); NEUTROPHILS % 49.7 % (36.0-66.0); PLATELET COUNT, AUTOMATED 184 10^3/uL (150-450); RED BLOOD COUNT 5.21 10^6/uL (4.30-6.10)
[2024-11-24 14:25] LABS: ALBUMIN 3.5 G/DL (3.2-5.2); BILIRUBIN,TOTAL 0.4 MG/DL (0.3-1.2); CALCIUM LEVEL 9.3 MG/DL (8.3-10.6); CHOLESTEROL RISK RATIO 2.68 (<5); CREATININE FOR GFR 1.33 MG/DL (0.70-1.30); GLOMERULAR FILTRATION RATE 55.2 (>42); HDL CHOLESTEROL 52.2 MG/DL (>40); LDL CHOLESTEROL 55.2 MG/DL (<100); NON-HDL-C 87.8 MG/DL; POTASSIUM SERUM 4.6 MMOL/L (3.5-5.1); TOTAL PROTEIN 6.9 G/DL (5.7-8.2)
[2024-11-24 14:27] LABS: FREE T4 1.07 NG/DL (0.89-1.76); THYROID STIMULATING HORMONE 5.22 uIU/ML (0.55-4.78)
[2024-11-24 14:49] LABS: CREATININE, URINE 57.9 MG/DL; MAU/CREAT RATIO 6.9 MCG/MG (0.0-30.0)
[2024-11-24 14:50] LABS: HEMOGLOBIN A1c 8.2 % (4.0-6.0)
== END ==
LOC: M SFHCADAM 07:42
PROVIDERS: ATTEND Physician Assistant Medical
DX: E11.65 Type 2 diabetes mellitus with hyperglycemia (principal); E55.9 Vitamin D deficiency, unspecified; E03.9 Hypothyroidism, unspecified; E78.2 Mixed hyperlipidemia

== ENCOUNTER → 2024-12-20 | Outpatient (REF) | payer MEDICARE ==
[2024-12-20 17:35] LABS: HEMOGLOBIN A1c 8.8 % (4.0-6.0)
== END ==
LOC: M SFHCADAM 11:43
PROVIDERS: ATTEND Physician Assistant Medical
DX: E11.9 Type 2 diabetes mellitus without complications (principal); E55.9 Vitamin D deficiency, unspecified

== ENCOUNTER 2025-03-20 06:49 | Day surgery (SDC) | payer MEDICARE ==
[~2025-03-20] VITALS: Ht 177.8 cm; Wt 80.7 kg
[~2025-03-20 06:49] MED LIST changes: +D3 M1CAP2 PO; +GLIP-320 PO; +JARD1TAB3 PO; +LISI5TAB11 PO; +METF-839 PO; +TETRACAINE 0.5% OPHTH SOLN 4ML OS SCH; +WARF-23 PO
[2025-03-20] MEDS ORDERED: LR 1,000 ML IV SCH (07:00)
[2025-03-20] MEDS: CYCLOPENTOLATE 1% OPHTH SOLN 2 ML BTL OS SCH (07:14)
[2025-03-20] MEDS: PHENYLEPHRINE 2.5% OPHTH SOL 2ML OS SCH (07:14)
[2025-03-20] MEDS: FLURBIPROFEN 0.03% OPHTH SOLN 2.5 ML OS SCH (07:14)
[2025-03-20] MEDS: LIDOCAINE 1% SDV 5 ML VIAL As Ordered ONE (08:49)
[2025-03-20] MEDS: CEFUROXIME 1 MG/0.1 ML INTRACAMERAL INJ As Ordered ONE (08:50)
[2025-03-20 09:15] VITALS: BP 130/62; TEMP 97.4; O2SAT 98
== END 2025-03-20 09:28 | disposition home or self-care (01) ==
LOC: M SDC 06:49
PROVIDERS: ATTEND Ophthalmology
DX: E11.36 Type 2 diabetes mellitus with diabetic cataract (principal); H25.12 Age-related nuclear cataract, left eye; I10 Essential (primary) hypertension; E03.9 Hypothyroidism, unspecified; E78.00 Pure hypercholesterolemia, unspecified; Z79.899 Other long term (current) drug therapy; Z79.84 Long term (current) use of oral hypoglycemic drugs; Z79.890 Hormone replacement therapy; Z79.01 Long term (current) use of anticoagulants; Z88.0 Allergy status to penicillin; Z90.49 Acquired absence of other specified parts of digestive tract
CPT/HCPCS: 66984; J0697; J3010; V2632

== ENCOUNTER → 2025-05-15 | Outpatient (REF) | payer MEDICARE ==
[~2025-05-15] MED LIST changes: -TETRACAINE 0.5% OPHTH SOLN 4ML OS SCH
[2025-05-15 13:56] LABS: BASO # 0.1 10^3/uL (0.0-0.2); BASO % 0.7 % (0.0-1.0); EOS # 0.2 10^3/uL (0.0-0.5); EOS % 2.6 % (0.0-3.0); LYMPH # 2.2 10^3/uL (1.5-5.0); LYMPH % 29.4 % (24.0-44.0); MONO # 0.8 10^3/uL (0.0-0.8); MONO % 10.7 % (2.0-8.0); NEUTROPHILS # 4.2 10^3/uL (1.5-8.5); NEUTROPHILS % 56.5 % (36.0-66.0); PLATELET COUNT, AUTOMATED 164 10^3/uL (150-450)
[2025-05-15 13:58] LABS: ALT/SGPT 24.0 U/L (7.0-40); AST/SGOT 21.0 U/L (<34); CALCIUM LEVEL 9.6 MG/DL (8.3-10.6); CARBON DIOXIDE LEVEL 26.0 MMOL/L (20-31); CHLORIDE LEVEL 107.0 MMOL/L (98-107); CHOLESTEROL LEVEL 138.0 MG/DL (<200); CHOLESTEROL RISK RATIO 2.88 (<5); CREATININE FOR GFR 1.29 MG/DL (0.70-1.30); GLOMERULAR FILTRATION RATE 56.4 (>42); LDL CHOLESTEROL 37.4 MG/DL (<100); NON-HDL-C 90.2 MG/DL; POTASSIUM SERUM 4.7 MMOL/L (3.5-5.1); SODIUM LEVEL 143.0 MMOL/L (136-145); TRIGLYCERIDES LEVEL 264.0 MG/DL (<150)
[2025-05-15 14:02] LABS: FREE T4 1.19 NG/DL (0.89-1.76)
[2025-05-15 14:03] LABS: TOTAL 25(OH) VITAMIN D 63.6 NG/ML (20.0-100.0)
[2025-05-15 14:04] LABS: ESTIMATED AVERAGE GLUCOSE 194.0 MG/DL (60-110)
[2025-05-15 14:18] LABS: CREATININE, URINE 62.5 MG/DL
[2025-05-15 14:19] LABS: MALB URINE SIEMENS 4.0 MG/L; MAU/CREAT RATIO 6.4 MCG/MG (0.0-30.0)
== END ==
LOC: M SFHCADAM 08:23
PROVIDERS: ATTEND Physician Assistant Medical
DX: Z01.818 Encounter for other preprocedural examination (principal); E11.65 Type 2 diabetes mellitus with hyperglycemia

== ENCOUNTER → 2025-08-07 | Outpatient (REF) | payer MEDICARE ==
[2025-08-07 13:57] LABS: ALT/SGPT 25.0 U/L (7.0-40); AST/SGOT 22.0 U/L (<34); CALCIUM LEVEL 9.4 MG/DL (8.3-10.6); CARBON DIOXIDE LEVEL 26.0 MMOL/L (20-31); CHLORIDE LEVEL 105.0 MMOL/L (98-107); CREATININE FOR GFR 1.18 MG/DL (0.70-1.30); GLOMERULAR FILTRATION RATE 62.8 (>42); POTASSIUM SERUM 4.6 MMOL/L (3.5-5.1); SODIUM LEVEL 140.0 MMOL/L (136-145)
[2025-08-07 14:01] LABS: ESTIMATED AVERAGE GLUCOSE 171.0 MG/DL (60-110)
== END ==
LOC: M SFHCADAM 08:44
PROVIDERS: ATTEND Physician Assistant Medical
DX: E11.65 Type 2 diabetes mellitus with hyperglycemia (principal)